=== PATIENT | female | born 1965 | race African-American/Black ===

== ENCOUNTER 2017-09-08 21:15 | Emergency (ER) | payer OTHER ==
[~2017-09-08] VITALS: Ht 154.9 cm; Wt 99.8 kg
[~2017-09-08 21:15] MED LIST: ABILIFY5 MG ORAL; ALBUTEROL SULF8.5 GM INH; AMOXICILLIN500 MG ORAL; ASPIR 8181 MG ORAL; ATENOLOL-CHLOR1 EAC2 ORAL; BENADRYL50 MG ORAL; BENAZEPRIL HCL10 MG ORAL; BENAZEPRIL HCL20 MG ORAL; BENAZEPRIL HCL40 MG ORAL; BIOTIN2500 MCG PO; CELEXA20 MG PO; CIPRO500 MG PO; HUMALOG100 UNIT/4 SUBQ; LEVAQUIN750 MG ORAL; MAPAP650 MG/20. PO; NORCO 5-325 TA1 EACH ORAL; NOVOLIN N100 UNIT/1 SUBQ; OMEPRAZOLE40 M1 ORAL; PERCOCET 5-3251 EACH ORAL; PREDNISONE20 MG ORAL; PROMETHAZINE-C118 M1 ORAL; SIMVASTATIN20 MG ORAL; THORAZINE10 MG PO; TOUJEO SOL300 UNIT/1 SQ; TYLENOL325 MG ORAL; [UNRECOGNIZED DRUG - OTHER] SUBQ; [UNRECOGNIZED DRUG - OTHER] SUBQ; [UNRECOGNIZED DRUG - REMARK]
[2017-09-08 21:25] VITALS: BP 163/110
[2017-09-08] MEDS ORDERED: HYDROmorphone 1mg/ml Carpuject IVP ONE (21:30)
[2017-09-08] MEDS ORDERED: Pantoprazole Inj IV ONE (21:30)
--- NOTE | 2017-09-08 21:30 | Emergency Room Report ---
History of Present Illness General Chief Complaint: Abdominal Pain Source: Patient Present Illness HPI This is a 52-year-old female with history of diabetes and renal insufficiency with GFR of around 16%. She's not on dialysis. She has been in DKA before. She presents with chief complaint of abdominal pain with vomiting and diarrhea. Onset today. Pain is 9/10. Vomiting now with chest pain. Vomiting is nonbloody and nonbilious. Diarrhea is watery. No sick contact. No fever or chills. Allergies: Coded Allergies: No Known Allergies (Unverified , 10/13/13) Patient History Past Medical History: see triage record, old chart reviewed, DM, HTN, renal disease Past Surgical History: other Pertinent Family History: none Social History: Reports: drug use - MJ. H/o PCP. Went to rehab., Denies: smoking Last Menstrual Period: none Now: No Immunizations: other Reviewed Nursing Documentation: PMH: Agreed, PSxH: Agreed Nursing Documentation-PMH Hx Hypertension: Yes Hx Asthma: Yes Hx COPD: Yes - bronchitis Hx Diabetes: Yes Hx Cancer: No Hx Gastrointestinal Problems: No - kidney failure Hx Neurological Problems: No - siezure, anxiety Review of Systems Eye: Denies: eye pain, blurred vision ENT: Denies: ear pain, nose congestion, throat swelling Respiratory: Denies: cough, shortness of breath Cardiovascular: Reports: chest pain, Denies: palpitations Gastrointestinal: Reports: abdominal pain, diarrhea, nausea, vomiting Musculoskeletal: Denies: back pain, joint pain Skin: Denies: rash Neurological: Denies: headache, numbness Endocrine: Denies: increased thirst, increased urine Hematologic/Lymphatic: Denies: easy bruising All Other Systems: negative except mentioned in HPI Physical Exam Vital Signs Date Time Temp Pulse Resp B/P (MAP) Pulse Ox O2 Delivery O2 Flow Rate FiO2 09/08/17 21:18 98.2 80 18 163/110 98 vitals with high blood pressure Sp02 EP Interpretation: reviewed, normal General Appearance: well appearing, no apparent distress, alert Head: normocephalic, atraumatic Eyes: bilateral eye PERRL, bilateral eye EOMI ENT: hearing grossly normal, normal pharynx Neck: full range of motion, supple, no meningismus Respiratory: chest non-tender, lungs clear, normal breath sounds Cardiovascular #1: regular rate, rhythm, no murmur Gastrointestinal: no mass, no organomegaly, no bruit, non-distended, abnormal bowel sounds - Hyperactive, tenderness - Diffuse tenderness Musculoskeletal: back normal, normal range of motion Neurologic: alert, oriented x3 Psychiatric: mood/affect normal Skin: warm/dry Medical Decision Making Diagnostic Impression: Primary Impression: Abdominal pain Qualified Codes: R10.84 - Generalized abdominal pain Additional Impressions: Pancreatitis Qualified Codes: K85.90 - Acute pancreatitis without necrosis or infection, unspecified Hyperglycemia ARF (acute renal failure) Qualified Codes: N17.9 - Acute kidney failure, unspecified Dehydration Proteinuria Qualified Codes: R80.9 - Proteinuria, unspecified ER Course This patient presents with abdominal pain with nausea vomiting and diarrhea. No evidence of obstruction or DKA. Kidney function showed acute on chronic renal failure. Patient said her baseline GFR is around 16 %. Now at 11%. Vomiting better now. She has a history of pancreatitis in the past. urinalysis is probably show contamination. No evidence of UTI. Laboratory Tests Test 09/08/17 21:41 09/08/17 22:05 Urine Color Yellow Urine Appearance Slightly cloudy Urine pH 7 (4.5-8.0) Urine Specific [place] 1.010 (1.005-1.035) Urine Protein 4+ (NEGATIVE) H Urine Glucose (UA) 2+ (NEGATIVE) H Urine Ketones 2+ (NEGATIVE) H Urine Occult Blood 3+ (NEGATIVE) H Urine Nitrite Negative (NEGATIVE) Urine Bilirubin Negative (NEGATIVE) Urine Urobilinogen Normal MG/DL (0.0-1.0) Urine Leukocyte Esterase 1+ (NEGATIVE) H Urine RBC 5-10 /HPF (0 - 2) H Urine WBC 2-4 /HPF (0 - 2) Urine Squamous Epithelial Cells Moderate /LPF (NONE/OCC) H Urine Amorphous Sediment Few /LPF (NONE) H Urine Bacteria Moderate /HPF (NONE) H Urine Opiates Screen Negative (NEGATIVE) Urine Barbiturates Screen Negative (NEGATIVE) Phencyclidine (PCP) Screen Negative (NEGATIVE) Urine Amphetamines Screen Negative (NEGATIVE) Urine Benzodiazepines Screen Negative (NEGATIVE) Urine Cocaine Screen Negative (NEGATIVE) Urine Marijuana (THC) Screen Positive (NEGATIVE) H White Blood Count Pending Red Blood Count Pending Hemoglobin Pending Hematocrit Pending Mean Corpuscular Volume Pending Mean Corpuscular Hemoglobin Pending Mean Corpuscular Hemoglobin Concent Pending Red Cell Distribution Width Pending Platelet Count Pending Mean Platelet Volume Pending Neutrophils (%) (Auto) Pending Lymphocytes (%) (Auto) Pending Monocytes (%) (Auto) Pending Eosinophils (%) (Auto) Pending Basophils (%) (Auto) Pending Sodium Level 139 MMOL/L (136-145) Potassium Level 4.0 MMOL/L (3.5-5.1) Chloride Level 101 MMOL/L (98-107) Carbon Dioxide Level 24 MMOL/L (21-32) Anion Gap 14 mmol/L (5-15) Blood Urea Nitrogen 52 mg/dL (7-18) H Creatinine 5.0 MG/DL (0.55-1.30) H Estimat Glomerular Filtration Rate 11.0 mL/min (>60) Glucose Level 222 MG/DL (74-106) H Calcium Level 9.3 MG/DL (8.5-10.1) Total Bilirubin 0.4 MG/DL (0.2-1.0) Aspartate Amino Transf (AST/SGOT) 15 U/L (15-37) Alanine Aminotransferase (ALT/SGPT) 13 U/L (12-78) Alkaline Phosphatase 186 U/L (46-116) H Total Protein 8.5 G/DL (6.4-8.2) H Albumin 3.1 G/DL (3.4-5.0) L Globulin 5.4 g/dL Albumin/Globulin Ratio 0.6 (1.0-2.7) L Lipase 1232 U/L (73-393) H Lab Results Impression labs showed elevated lipase and kidney function. Last Vital Signs Date Time Temp Pulse Resp B/P (MAP) Pulse Ox O2 Delivery O2 Flow Rate FiO2 09/08/17 21:25 98.2 18 163/110 98 09/08/17 21:18 80 Status: improved Disposition: XFER SHT-TRM HOSP Condition: Stable KANDY DEGROOT M.D. Sep 08, 2017 21:30
[2017-09-08 22:08] LABS: APPEARANCE,URINE SLIGHTLY CLOUDY; KETONES,URINE 2+ (NEGATIVE); LEUKOCYTE ESTERASE ,URINE 1+ (NEGATIVE); NITRITE,URINE NEGATIVE (NEGATIVE); PH,URINE 7 (4.5-8.0); PROTEIN,URINE 4+ (NEGATIVE); UROBILINOGEN,URINE NORMAL MG/DL (0.0-1.0)
[2017-09-08 22:19] LABS: AMORPHOUS SEDIMENT,UR FEW /LPF; BACTERIA,URINE MODERATE /HPF; SQUAMOUS EPITHELIAL CELL,UR MODERATE /LPF (NONE/OCC)
[2017-09-08 22:35] LABS: ANION GAP 14 mmol/L (5-15); CALCIUM 9.3 MG/DL (8.5-10.1); CARBON DIOXIDE 24 MMOL/L (21-32); CHLORIDE 101 MMOL/L (98-107); SODIUM 139 MMOL/L (136-145)
[2017-09-08 22:41] LABS: ALANINE AMINOTRANSFERASE 13 U/L (12-78); ALBUMIN/GLOBULIN RATIO 0.6 (1.0-2.7); ASPARTATE AMINO TRANSFERASE 15 U/L (15-37); LIPASE 1232 U/L (73-393); TOTAL PROTEIN 8.5 G/DL (6.4-8.2)
[2017-09-08 23:08] VITALS: BP 155/88
[2017-09-08 23:10] LABS: BASOPHILS % (AUTO) 0.8 % (0.0-2.0); EOSINOPHILS % (AUTO) 0.5 % (0.0-3.0); LYMPHOCYTES % (AUTO) 21.8 % (20.0-45.0); MEAN CORPUSCULAR HEMOGLOBIN 27.1 PG (27.0-31.0); MEAN CORPUSCULAR HGB CONC 29.9 G/DL (32.0-36.0); MEAN CORPUSCULAR VOLUME 91 FL (80-99); MEAN PLATELET VOLUME 8.2 FL (6.5-10.1); MONOCYTES % (AUTO) 3.5 % (1.0-10.0); NEUTROPHILS % (AUTO) 73.5 % (45.0-75.0); PLATELET COUNT 162 K/UL (150-450); RED BLOOD COUNT 3.31 M/UL (4.20-5.40); RED CELL DISTRIBUTION WIDTH 12.1 % (11.6-14.8); WHITE BLOOD COUNT 7.5 K/UL (4.8-10.8)
[2017-09-09 00:34] VITALS: BP 148/90
[2017-09-09 00:40] VITALS: BP 148/90
== END 2017-09-09 00:41 | disposition short-term general hospital (02) ==
LOC: EMR 21:25
DX: R10.9 Unspecified abdominal pain (principal); R11.2 Nausea with vomiting, unspecified; R19.7 Diarrhea, unspecified; K85.90 Acute pancreatitis without necrosis or infection, unspecified; J45.909 Unspecified asthma, uncomplicated; R73.9 Hyperglycemia, unspecified; N17.9 Acute kidney failure, unspecified; E86.0 Dehydration; R80.9 Proteinuria, unspecified; I12.9 Hypertensive chronic kidney disease with stage 1 through stage 4 chronic kidney disease, or unspecified chronic kidney disease; N18.9 Chronic kidney disease, unspecified
CPT/HCPCS: 36415; 80053; 80307; 81003; 83690; 85025; 87086; 96374; 96375; 99285; C9113; J1170; J2405

== ENCOUNTER 2017-10-05 12:19 | Emergency (ER) | payer OTHER ==
[~2017-10-05] VITALS: Ht 157.5 cm; Wt 104.3 kg
[2017-10-05 12:30] VITALS: BP 155/99
[2017-10-05] MEDS ORDERED: Pantoprazole Inj IVP ONE (13:00)
[2017-10-05] MEDS ORDERED: NS 1000ml 3,100 ML IVLG ONE (13:00)
[2017-10-05 13:02] LABS: BASOPHILS % (AUTO) 0.9 % (0.0-2.0); EOSINOPHILS % (AUTO) 1.1 % (0.0-3.0); LYMPHOCYTES % (AUTO) 8.6 % (20.0-45.0); MEAN CORPUSCULAR HEMOGLOBIN 27.9 PG (27.0-31.0); MEAN CORPUSCULAR HGB CONC 30.7 G/DL (32.0-36.0); MEAN CORPUSCULAR VOLUME 91 FL (80-99); MEAN PLATELET VOLUME 9.1 FL (6.5-10.1); NEUTROPHILS % (AUTO) 84.3 % (45.0-75.0); PLATELET COUNT 166 K/UL (150-450); RED BLOOD COUNT 3.94 M/UL (4.20-5.40); RED CELL DISTRIBUTION WIDTH 12.9 % (11.6-14.8); WHITE BLOOD COUNT 8.8 K/UL (4.8-10.8)
[2017-10-05 14:00] VITALS: BP 143/77
[2017-10-05 14:04] LABS: ANION GAP 10 mmol/L (5-15); CARBON DIOXIDE 21 MMOL/L (21-32); CHLORIDE 107 MMOL/L (98-107); CREATININE 4.6 MG/DL (0.55-1.30); POTASSIUM 5.3 MMOL/L (3.5-5.1); SODIUM 138 MMOL/L (136-145)
[2017-10-05 14:28] LABS: ALANINE AMINOTRANSFERASE 24 U/L (12-78); ALBUMIN/GLOBULIN RATIO 0.6 (1.0-2.7); ASPARTATE AMINO TRANSFERASE 19 U/L (15-37); CKMB 1.4 NG/ML (0.0-3.6); MAGNESIUM 1.2 MG/DL (1.8-2.4); TOTAL PROTEIN 8.1 G/DL (6.4-8.2)
--- NOTE | 2017-10-05 14:37 | Emergency Room Report ---
History of Present Illness General Chief Complaint: Chest Pain Source: Patient Present Illness HPI This patient presents with nausea, vomiting, diarrhea and chest pain. The patient has a history of end-stage renal disease and is dialysis dependent. She states she woke up around 6 AM this morning with nausea and vomiting. She states that thereafter she developed chest pain and diarrhea. She did not go to dialysis today as scheduled. She states she continued to have multiple episodes of vomiting and diarrhea and she was unable to get to the clinic. She denies fever or chills. She denies recent illness. She has no other complaints. Allergies: Coded Allergies: No Known Allergies (Unverified , 10/13/13) Patient History Past Medical History: see triage record, DM, HTN, AL, CAD, CHF, COPD, GERD, psych hx, renal disease, dialysis Social History: Denies: smoking, alcohol use, drug use Reviewed Nursing Documentation: PMH: Agreed, PSxH: Agreed Nursing Documentation-PMH Hx Hypertension: Yes Hx Asthma: Yes Hx COPD: Yes - bronchitis Hx Diabetes: Yes Hx Cancer: No Hx Gastrointestinal Problems: No - kidney failure Hx Dialysis: Yes - TUES, THURS, SAT Hx Neurological Problems: No - siezure, anxiety Review of Systems All Other Systems: negative except mentioned in HPI Physical Exam Vital Signs Date Time Temp Pulse Resp B/P (MAP) Pulse Ox O2 Delivery O2 Flow Rate FiO2 10/05/17 12:27 98.2 123 20 135/83 99 Room Air Sp02 EP Interpretation: reviewed, normal General Appearance: no apparent distress, alert, GCS 15, non-toxic Head: normocephalic, atraumatic Eyes: bilateral eye normal inspection, bilateral eye PERRL ENT: hearing grossly normal, normal pharynx, no angioedema, normal voice Neck: full range of motion, supple/symm/no masses Respiratory: chest non-tender, lungs clear, normal breath sounds, no respiratory distress, no retraction, no accessory muscle use, speaking full sentences Cardiovascular #1: no edema, tachycardia Gastrointestinal: normal bowel sounds, non tender, soft, non-distended, no guarding, no rebound Rectal: deferred Musculoskeletal: back normal, normal range of motion, non-tender Neurologic: alert, oriented x3, responsive, motor strength/tone normal, sensory intact, speech normal Psychiatric: judgement/insight normal, memory normal, mood/affect normal, no suicidal/homicidal ideation Skin: normal color, no rash, warm/dry, well hydrated Medical Decision Making Diagnostic Impression: Primary Impression: Chest pain Additional Impressions: Nausea, vomiting, and diarrhea Tachycardia Hyperkalemia ER Course This patient likely has a viral gastroenteritis. She has recurrent vomiting and diarrhea. She also is chest pain. She persistently tachycardic in the 120s. She also has hyperkalemia related to her renal failure. She missed dialysis today. I felt this patient should be admitted for ongoing vomiting and for all of her other chronic medical conditions that but this patient at risk for rapid decompensation. The patient states she is unsure she failed to get into dialysis tomorrow before the weekend and Monday is the [place] holiday. Therefore, I felt that this patient should be admitted overnight. Laboratory Tests Test 10/05/17 12:40 10/05/17 13:10 10/05/17 13:30 White Blood Count 8.8 K/UL (4.8-10.8) Red Blood Count 3.94 M/UL (4.20-5.40) L Hemoglobin 11.0 G/DL (12.0-16.0) L Hematocrit 35.8 % (37.0-47.0) L Mean Corpuscular Volume 91 FL (80-99) Mean Corpuscular Hemoglobin 27.9 PG (27.0-31.0) Mean Corpuscular Hemoglobin Concent 30.7 G/DL (32.0-36.0) L Red Cell Distribution Width 12.9 % (11.6-14.8) Platelet Count 166 K/UL (150-450) Mean Platelet Volume 9.1 FL (6.5-10.1) Neutrophils (%) (Auto) 84.3 % (45.0-75.0) H Lymphocytes (%) (Auto) 8.6 % (20.0-45.0) L Monocytes (%) (Auto) 5.0 % (1.0-10.0) Eosinophils (%) (Auto) 1.1 % (0.0-3.0) Basophils (%) (Auto) 0.9 % (0.0-2.0) Lactic Acid Level 0.90 mmol/L (0.66-2.22) Sodium Level 138 MMOL/L (136-145) Potassium Level 5.3 MMOL/L (3.5-5.1) H Chloride Level 107 MMOL/L (98-107) Carbon Dioxide Level 21 MMOL/L (21-32) Anion Gap 10 mmol/L (5-15) Blood Urea Nitrogen 39 mg/dL (7-18) H Creatinine 4.6 MG/DL (0.55-1.30) H Estimate Glomerular Filtration Rate 12.0 mL/min (>60) Glucose Level 106 MG/DL (74-106) Calcium Level 9.0 MG/DL (8.5-10.1) Magnesium Level 1.2 MG/DL (1.8-2.4) L Total Bilirubin 0.3 MG/DL (0.2-1.0) Aspartate Amino Transferase (AST) 19 U/L (15-37) Alanine Aminotransferase (ALT) 24 U/L (12-78) Alkaline Phosphatase 170 U/L (46-116) H Total Creatine Kinase 92 U/L (26-308) Creatine Kinase MB 1.4 NG/ML (0.0-3.6) Creatine Kinase MB Relative Index 1.5 Troponin I 0.000 ng/mL (0.000-0.056) Total Protein 8.1 G/DL (6.4-8.2) Albumin 2.9 G/DL (3.4-5.0) L Globulin 5.2 g/dL Albumin/Globulin Ratio 0.6 (1.0-2.7) L Microbiology Date/Time Source Procedure Growth Status 10/05/17 13:45 Nasal Nares Influenza Types A,B Antigen (JUANA) - Final Complete EKG Diagnostic Results Rate: tachycardiac Rhythm: other - S.tachycardia ST Segments: no acute changes Rhythm Strip Diag. Results EP Interpretation: yes Rate: 110's Rhythm: no PVC's, no ectopy, other - S.tachycardia Chest X-Ray Diagnostic Results Chest X-Ray Diagnostic Results : Chest X-Ray Ordered: Yes # of Views/Limited/Complete: 1 View Indication: Chest Pain EP Interpretation: Yes Interpretation: no consolidation, no effusion, no pneumothorax, no acute cardiopulmonary disease Impression: No acute disease Electronically Signed by: El Last Vital Signs Date Time Temp Pulse Resp B/P (MAP) Pulse Ox O2 Delivery O2 Flow Rate FiO2 10/05/17 12:30 98.0 118 24 155/99 100 Room Air Disposition: ADMITTED INPATIENT Condition: Serious Referrals: [facility]ERR[facility] (PCP) SHERRI GUERRERO D.O. Oct 05, 2017 14:37
[2017-10-05] MEDS ORDERED: Sodium Chloride 500ML 500 ML IV ONE (14:45)
[2017-10-05 14:51] LABS: APPEARANCE,URINE CLEAR; KETONES,URINE NEGATIVE (NEGATIVE); LEUKOCYTE ESTERASE ,URINE 1+ (NEGATIVE); NITRITE,URINE NEGATIVE (NEGATIVE); PH,URINE 8 (4.5-8.0); PROTEIN,URINE 4+ (NEGATIVE); UROBILINOGEN,URINE NORMAL MG/DL (0.0-1.0)
[2017-10-05 14:59] LABS: BACTERIA,URINE OCCASIONAL /HPF; SQUAMOUS EPITHELIAL CELL,UR FEW /LPF (NONE/OCC); WBC,URINE 0-2 /HPF (0 - 2)
--- NOTE | 2017-10-05 15:25 | Diagnostic Imaging Report ---
Indication: Chest pain Technique: One view of the chest Comparison: 08/18/2016 Findings: Lungs and pleural spaces are clear. Heart size is normal. Interim placement of a right jugular tunneled dialysis catheter Impression: No acute process
[2017-10-05 16:30] VITALS: BP 144/98
[2017-10-05] MEDS ORDERED: Morphine Sulfate 4mg/ml Inj ONE (16:57)
[2017-10-05] MEDS ORDERED: Morphine Sulfate 4mg/ml Inj IVP ONE (17:00)
[2017-10-05 19:00] VITALS: BP 153/71
--- NOTE | 2017-10-08 15:20 | Cardiology Report ---
APPROVED REPORT EKG Measurement Heart [id number] Sinus tachycardia Otherwise normal ECG
== END 2017-10-05 19:02 | disposition other institution (70) ==
LOC: EMR 13:05
DX: R07.89 Other chest pain (principal); R11.2 Nausea with vomiting, unspecified; R11.10 Vomiting, unspecified; R00.0 Tachycardia, unspecified; E87.5 Hyperkalemia; I12.0 Hypertensive chronic kidney disease with stage 5 chronic kidney disease or end stage renal disease; N18.6 End stage renal disease; Z99.2 Dependence on renal dialysis; J44.9 Chronic obstructive pulmonary disease, unspecified
CPT/HCPCS: 36415; 71010; 80053; 81003; 82550; 82553; 83605; 83735; 84484; 85025; 86710; 93005; 99285; C9113; J2270; J2405; J7040

== ENCOUNTER 2018-04-09 08:16 | Emergency (ER) | payer OTHER ==
[~2018-04-09] VITALS: Ht 154.9 cm; Wt 102.1 kg
--- NOTE | 2018-04-09 08:59 | Emergency Room Report ---
History of Present Illness General Chief Complaint: Lower Extremity Injury Source: Patient, Medical Record Present Illness HPI Patient injured her right little toe last night. She caught it on a counter. No bleeding. The pain is severe this morning. She rates it at 10/10, throbbing and aching, radiating to foot. She is concerned as she is a diabetic and also wants to know if fractured. No pain medicine taken. No numbness. No fevers, calf swelling or pain. The patient is also diabetic and glucose was 200. She did not take her insulin this morning. Allergies: Coded Allergies: No Known Allergies (Unverified , 10/13/13) Patient History Past Medical History: see triage record Social History Narrative brought by daughter Last Menstrual Period: menopause Reviewed Nursing Documentation: PMH: Agreed; PSxH: Agreed Nursing Documentation-PMH Past Medical History: No History, Except For Hx Hypertension: Yes Hx Asthma: Yes Hx COPD: Yes - bronchitis Hx Diabetes: Yes Hx Cancer: No Hx Gastrointestinal Problems: No - kidney failure Hx Dialysis: Yes - TUES, THURS, SAT Hx Neurological Problems: No - siezure, anxiety Review of Systems Constitutional: Reports: see HPI Musculoskeletal: Reports: see HPI Skin: Denies: change in color Neurological: Reports: see HPI Endocrine: Reports: see HPI Hematologic/Lymphatic: Reports: see HPI Physical Exam Vital Signs Date Time Temp Pulse Resp B/P (MAP) Pulse Ox O2 Delivery O2 Flow Rate FiO2 04/09/18 08:19 98.4 83 18 150/80 95 Room Air 98.4 Medical Decision Making Diagnostic Impression: Primary Impression: Right little toe fracture Additional Impression: Diabetes Qualified Codes: E11.8 - Type 2 diabetes mellitus with unspecified complications; 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 Differential includes fracture, contusion, sprain. The patient be given analgesics and x-rays are indicated. In addition an Accu-Chek will be checked. Also she will be given analgesics. Xray with fracture. Rigoberto tape applied by tech. Position, tension and neurovasc checked by me and excellent with improvement. Accucheck in 200s. Insulin ordered. Advised to follow up to have re-evaluation. Patient stable for outpatient observation and treatment. Other X-Ray Diagnostic Results Other X-Ray Diagnostic Results : X-Ray ordered: R foot # of Views/Limited Vs Complete: 3 View Indication: Pain EP Interpretation: Yes Interpretation: no dislocation, no soft tissue swelling, other - fx and osteopenia Impression: Other Electronically Signed by: Darrius Navarro MD Last Vital Signs Date Time Temp Pulse Resp B/P (MAP) Pulse Ox O2 Delivery O2 Flow Rate FiO2 04/09/18 11:00 98.4 78 18 150/80 98 Room Air 98.4 Status: improved Disposition: HOME, SELF-CARE Condition: Improved Scripts Ibuprofen* (MOTRIN*) 400 Mg Tablet 400 MG ORAL Q8H, #12 TAB 0 Refills Prov: Darrius Navarro M.D. 04/09/18 Tramadol Hcl* (ULTRAM*) 50 Mg Tablet 50 MG ORAL Q6H PRN for For Pain, #14 TAB 0 Refills Prov: Darrius Navarro M.D. 04/09/18 Referrals: [facility]ERR[facility] (PCP) Darrius Navarro M.D. Apr 09, 2018 08:59
[2018-04-09] MEDS ORDERED: oxyCODONE HCL/Acetaminophen 5/325mg ORAL ONE (09:00)
[2018-04-09] MEDS ORDERED: NovoLOG Insulin Flexpen SUBQ STA (09:07)
[2018-04-09] MEDS ORDERED: Insulin Human Regular 100units/ml 3ml SUBQ ONE (09:30)
[2018-04-09] MEDS ORDERED: IBUPROFEN400 MG ORAL (10:22)
[2018-04-09] MEDS ORDERED: TRAMADOL HCL50 MG ORAL (10:22)
--- NOTE | 2018-04-09 10:45 | Diagnostic Imaging Report ---
Indication: Pain in fifth digit of right foot, status post trauma Technique: 3 views right foot Comparison: none Findings: No acute fractures. No dislocations. The joint spaces are preserved. There is mild hammertoe deformity of the second through fifth digits Impression: No acute bony trauma
[2018-04-09 11:00] VITALS: BP 150/80
== END 2018-04-09 11:03 | disposition home or self-care (01) ==
LOC: EMR 08:56
DX: S92.501A Displaced unspecified fracture of right lesser toe(s), initial encounter for closed fracture (principal); W22.8XXA Striking against or struck by other objects, initial encounter; Y92.009 Unspecified place in unspecified non-institutional (private) residence as the place of occurrence of the external cause; J44.9 Chronic obstructive pulmonary disease, unspecified; E11.9 Type 2 diabetes mellitus without complications; I12.0 Hypertensive chronic kidney disease with stage 5 chronic kidney disease or end stage renal disease; N18.6 End stage renal disease; Z99.2 Dependence on renal dialysis
CPT/HCPCS: 73630; 82962; 96372; 99283; J1815

== ENCOUNTER 2018-10-17 03:46 | Emergency (ER) | payer OTHER ==
[~2018-10-17] VITALS: Ht 157.5 cm; Wt 108.0 kg
[~2018-10-17 03:46] MED LIST changes: +IBUPROFEN400 MG ORAL; +TRAMADOL HCL50 MG ORAL
--- NOTE | 2018-10-17 03:56 | Emergency Room Report ---
History of Present Illness General Source: Patient Present Illness HPI This is a 53-year-old female with multiple medical problems including diabetes, hypertension, asthma, renal failure on hemodialysis. Her usual dialysis days are Monday, , Monday. She had dialysis done on Monday because of the holiday. She said that they only took out 2 kg because she was cramping. Her dry weight is usually around 102 kilogram. He was 105 kg on Monday. She presents with shortness of breath. Onset was acute. Awoke her up from sleep. Per EMS she was typed and hypoxic. She was wheezing so they put her on albuterol. She felt somewhat better now. No nausea no vomiting. No fever or chills. Worse with lying flat. Better with sitting up. Better with oxygen. Allergies: Coded Allergies: No Known Allergies (Unverified , 10/13/13) Patient History Past Medical History: see triage record, old chart reviewed, DM, HTN, CHF, asthma, renal disease, dialysis Past Surgical History: other Pertinent Family History: none Social History: Denies: smoking Now: No Immunizations: other Reviewed Nursing Documentation: PMH: Agreed; PSxH: Agreed Nursing Documentation-PMH Hx Hypertension: Yes Hx Asthma: Yes Hx COPD: Yes - bronchitis Hx Diabetes: Yes Hx Cancer: No Hx Gastrointestinal Problems: No - kidney failure Hx Dialysis: Yes - , , MON Hx Neurological Problems: No - siezure, anxiety Review of Systems Eye: Denies: eye pain, blurred vision ENT: Denies: ear pain, nose congestion, throat swelling Respiratory: Reports: shortness of breath; Denies: cough Cardiovascular: Denies: chest pain, palpitations Gastrointestinal: Denies: abdominal pain, diarrhea, nausea, vomiting Musculoskeletal: Denies: back pain, joint pain Skin: Denies: rash Neurological: Denies: headache, numbness Endocrine: Denies: increased thirst, increased urine Hematologic/Lymphatic: Denies: easy bruising All Other Systems: negative except mentioned in HPI Physical Exam vitals with tachycardia and hypoxia Sp02 EP Interpretation: reviewed, abnormal General Appearance: well appearing, alert, mild distress, obese Head: normocephalic, atraumatic Eyes: bilateral eye PERRL, bilateral eye EOMI ENT: hearing grossly normal, normal pharynx Neck: full range of motion, supple, no meningismus Respiratory: chest non-tender, respiratory distress, decreased breath sounds, accessory muscle use, rales, wheezing - Faint wheezing Cardiovascular #1: regular rate, rhythm, no murmur, other - Left chest dialysis graft Gastrointestinal: normal bowel sounds, non tender, no mass, no organomegaly, no bruit, non-distended Musculoskeletal: back normal, gait/station normal, normal range of motion, other - Left AV graft. Tender to palpation. This graft was just placed recently. Neurologic: alert, oriented x3 Psychiatric: mood/affect normal Skin: warm/dry Procedures Critical Care Time Critical Care Time Critical care is mandated in this patient who presented with respiratory distress secondary to fluid overloaded. Patient require my urgent intervention to attenuate the risks of respiratory collapse which may lead to cardiovascular collapse and . Critical care time is 35 minutes excluding any reportable procedure. Critical care time included evaluation, multiple reevaluation, looking at old charts, interpreting laboratory and diagnostic data, discussing case with patient and family and consultants, and charting. Medical Decision Making Diagnostic Impression: Primary Impression: Acute exacerbation of CHF (congestive heart failure) Qualified Codes: I50.9 - Heart failure, unspecified Additional Impressions: Asthma exacerbation Qualified Codes: J45.21 - Mild intermittent asthma with (acute) exacerbation Hypertension Qualified Codes: I10 - Essential (primary) hypertension Type 1 diabetes mellitus with hyperglycemia Morbid obesity with BMI of 40.0-44.9, adult ER Course Patient with rest or distress secondary to fluid overloaded. She diuresed after Lasix. [place] better. Also better after that lasted treatment from EMS and oxygen here. No evidence of ACS, PE, dissection or pneumonia to name a few. At this point in time, she stable for transfer. I discussed the case with Dr. Mclaughlin who accepted pt for transfer to [facility]. Lab Results Impression last with elevated glucose and BNP EKG Diagnostic Results Rate: normal, tachycardiac Rhythm: NSR ST Segments: other - NSST changes Rhythm Strip Diag. Results Rhythm Strip Time: 04:26 EP Interpretation: yes Rate: 110 Rhythm: NSR, no PVC's, no ectopy Chest X-Ray Diagnostic Results Chest X-Ray Diagnostic Results : Chest X-Ray Ordered: Yes # of Views/Limited/Complete: 1 View Indication: Shortness of Breath EP Interpretation: Yes Interpretation: no consolidation, no effusion, no pneumothorax, other - vasc congestion Impression: Other - chf Electronically Signed by: Carlos Tang MD Status: improved Disposition: XFER SHT-TRM HOSP Condition: Stable Carols Tang MD Oct 17, 2018 03:56
[2018-10-17 04:00] VITALS: BP 140/71
--- NOTE | 2018-10-17 04:00 | NUR ---
ED Nurse Note: pt wasa brought in by ra Lorenzana from home due to difficulty breathing x 20 mins ago. lafd stated pt was asleep and started to have shortness of breath. 2 albuterol nebulizer was given in the scene. pt O2 sat is 99 per traig. no additional signs of resp depression other than albuterol treatment per EMS. no accessory muscles noted to help pt breath. (no labored breathing) lungs sound clear bilaterally. pt is alert and oriented times 4 at the time of traig, pt is able to answer questions during assesment. pt admits to a graft for dialysis on left upper chest. pt admitts to a immature fistual on L arm.
[2018-10-17 04:06] LABS: BASOPHILS % (AUTO) 1.3 % (0.0-2.0); EOSINOPHILS % (AUTO) 1.7 % (0.0-3.0); HEMATOCRIT 32.6 % (37.0-47.0); HEMOGLOBIN 10.2 G/DL (12.0-16.0); LYMPHOCYTES % (AUTO) 25.3 % (20.0-45.0); MEAN CORPUSCULAR VOLUME 95 FL (80-99); MONOCYTES % (AUTO) 4.5 % (1.0-10.0); NEUTROPHILS % (AUTO) 67.2 % (45.0-75.0); PLATELET COUNT 291 K/UL (150-450); RED BLOOD COUNT 3.43 M/UL (4.20-5.40); RED CELL DISTRIBUTION WIDTH 14.4 % (11.6-14.8); WHITE BLOOD COUNT 11.7 K/UL (4.8-10.8)
[2018-10-17 04:26] LABS: APPEARANCE,URINE CLEAR; BILIRUBIN, URINE NEGATIVE (NEGATIVE); COLOR,URINE PALE YELLOW; GLUCOSE, URINE (UA) 4+ (NEGATIVE); KETONES,URINE NEGATIVE (NEGATIVE); LEUKOCYTE ESTERASE ,URINE 1+ (NEGATIVE); NITRITE,URINE NEGATIVE (NEGATIVE); PH,URINE 8 (4.5-8.0); PROTEIN,URINE 3+ (NEGATIVE); UROBILINOGEN,URINE NORMAL MG/DL (0.0-1.0)
[2018-10-17] MEDS ORDERED: VENTOLIN HFA18 GM INH (04:32)
[2018-10-17] MEDS ORDERED: OMEPRAZOLE40 M1 ORAL (04:32)
[2018-10-17] MEDS ORDERED: RISPERDAL1 MG PO (04:32)
[2018-10-17] MEDS ORDERED: GABAPENTIN400 MG ORAL (04:32)
[2018-10-17] MEDS ORDERED: HUMULIN R100 UNIT/1 SUBQ (04:32)
[2018-10-17] MEDS ORDERED: BANOPHEN25 MG PO (04:32)
[2018-10-17 04:38] LABS: ALANINE AMINOTRANSFERASE 18 U/L (12-78); ALBUMIN 3.3 G/DL (3.4-5.0); ALBUMIN/GLOBULIN RATIO 0.7 (1.0-2.7); ALKALINE PHOSPHATASE 264 U/L (46-116); ANION GAP 10 mmol/L (5-15); ASPARTATE AMINO TRANSFERASE 16 U/L (15-37); BILIRUBIN,TOTAL 0.4 MG/DL (0.2-1.0); BLOOD UREA NITROGEN 48 mg/dL (7-18); CALCIUM 8.2 MG/DL (8.5-10.1); CARBON DIOXIDE 29 MMOL/L (21-32); CHLORIDE 100 MMOL/L (98-107); CKMB 1.4 NG/ML (0.0-3.6); CREATINE KINASE 117 U/L (26-308); CREATININE 5.1 MG/DL (0.55-1.30); POTASSIUM 3.6 MMOL/L (3.5-5.1); SODIUM 139 MMOL/L (136-145)
[2018-10-17] MEDS ORDERED: Insulin Human Regular 100units/ml 3ml IV ONE (04:45)
--- NOTE | 2018-10-17 05:15 | Diagnostic Imaging Report ---
EXAM: XR Chest, 1 View CLINICAL HISTORY: SOB TECHNIQUE: Frontal view of the chest. COMPARISON: Chest radiograph dated 10/05/17. FINDINGS: Lungs: There is development of increased interstitial markings bilaterally. More confluent opacities are seen at the lung bases. Pleural space: Unremarkable. No pneumothorax. Heart: Cardiac size is prominent. Mediastinum: Unremarkable. Bones/joints: Unremarkable. Vasculature: A vascular stent has been placed at the right upper thorax. Tubes, lines and devices: There is a central venous catheter with the tip projecting at the right atrium. IMPRESSION: Interval development of increased prominence of interstitial markings and hazy opacities at the lung bases. Differential diagnosis would favor pulmonary vascular congestion. Bibasilar pneumonia is not excluded.
[2018-10-17 06:00] VITALS: BP 152/69
--- NOTE | 2018-10-17 06:33 | NUR ---
ED Nurse Note: Blood sugar recheck: 230. aware.
[2018-10-17 07:01] VITALS: BP 130/74
--- NOTE | 2018-10-17 07:46 | NUR ---
ED Nurse Note: daughter, call for update
[2018-10-17 08:30] VITALS: BP 130/74
--- NOTE | 2018-10-17 08:31 | NUR ---
ED Nurse Note: ambulance picked the patient up to bring her to [facility], report given to nursing drilling supervisor Joya. patient left her upper denture, 1 black cell phone, and her clothings. ID band removed. a/o x4, ambulatory, patient used bedside commode safely just before she left.
--- NOTE | 2018-10-17 15:45 | Cardiology Report ---
APPROVED REPORT EKG Measurement Heart [id number] [place] [id number] Sinus tachycardia Otherwise normal ECG
== END 2018-10-17 08:30 | disposition short-term general hospital (02) ==
LOC: EDBD 03:46 → EMR 04:00 → EDBEDREQ 07:58 → EMR 08:30
DX: I13.2 Hypertensive heart and chronic kidney disease with heart failure and with stage 5 chronic kidney disease, or end stage renal disease (principal); I50.9 Heart failure, unspecified; N18.6 End stage renal disease; E11.22 Type 2 diabetes mellitus with diabetic chronic kidney disease; Z99.2 Dependence on renal dialysis; J45.901 Unspecified asthma with (acute) exacerbation; E66.9 Obesity, unspecified; Z68.41 Body mass index [BMI] 40.0-44.9, adult
CPT/HCPCS: 36415; 71045; 80053; 80307; 81003; 82550; 82553; 83880; 84484; 85025; 85610; 85730; 93005; 96374; 96375; 99291; J1815; J1940

== ENCOUNTER 2019-09-17 02:33 | Inpatient (IN) | payer OTHER ==
[2019-09-17] VITALS (7 sets, daily range): BP systolic 109–145; BP diastolic 50–100
[~2019-09-17] VITALS: Ht 157.5 cm; Wt 114.8 kg
[~2019-09-17 02:33] MED LIST changes: +BANOPHEN25 MG PO; +GABAPENTIN400 MG ORAL; +HUMULIN R100 UNIT/1 SUBQ; +RISPERDAL1 MG PO; +VENTOLIN HFA18 GM INH
--- NOTE | 2019-09-17 02:43 | Emergency Room Report ---
History of Present Illness General Chief Complaint: Dyspnea/Respdistress Source: Patient, Medical Record, EMS Present Illness HPI This is a 54-year-old female with a history of renal failure on hemodialysis. Hemodialysis days are Monday, , Monday. Patient presents with chief complaint of shortness of breath. Onset was about an hour and a half prior to arrival. Was acutely. She called 911. This occurred to her frequently. Per EMS, she was hypoxic and blood pressure was elevated. Systolic was over 200. She had wheezing and they gave her nitroglycerin, albuterol and placed on a CPAP mask. They brought her here. Patient felt better now. Worse with exertion. Worse with lying flat. Better with breathing treatment. Similar symptoms in the past. Denies any chest pain. Denies any diaphoresis. Did get her dialysis on Monday. Allergies: Coded Allergies: No Known Allergies (Unverified , 10/13/13) Patient History Past Medical History: see triage record, old chart reviewed, HTN, CHF, renal disease, dialysis Past Surgical History: other Pertinent Family History: none Social History: Denies: smoking Now: No Immunizations: other Reviewed Nursing Documentation: PMH: Agreed; PSxH: Agreed Nursing Documentation-PMH Hx Hypertension: Yes Hx Asthma: Yes Hx COPD: Yes - bronchitis Hx Diabetes: Yes Hx Cancer: No Hx Gastrointestinal Problems: No - kidney failure Hx Dialysis: Yes - M,W,F Hx Neurological Problems: No - SEIZURE, ANXIETY Review of Systems Eye: Denies: eye pain, blurred vision ENT: Denies: ear pain, nose congestion, throat swelling Respiratory: Reports: shortness of breath, wheezing, TAMEZ; Denies: cough Cardiovascular: Denies: chest pain, palpitations Gastrointestinal: Denies: abdominal pain, diarrhea, nausea, vomiting Musculoskeletal: Denies: back pain, joint pain Skin: Denies: rash Neurological: Denies: headache, numbness Endocrine: Denies: increased thirst, increased urine Hematologic/Lymphatic: Denies: easy bruising All Other Systems: negative except mentioned in HPI Physical Exam Vital Signs Date Time Temp Pulse Resp B/P (MAP) Pulse Ox O2 Delivery O2 Flow Rate FiO2 09/17/19 02:31 98.8 91 28 141/106 (118) 94 Bi-pap 15.0 Vitals with high blood pressure Sp02 EP Interpretation: reviewed, abnormal General Appearance: well appearing, alert, moderate distress, obese Head: normocephalic, atraumatic Eyes: bilateral eye PERRL, bilateral eye EOMI ENT: hearing grossly normal, normal pharynx Neck: full range of motion, supple, no meningismus Respiratory: chest non-tender, respiratory distress, decreased breath sounds, accessory muscle use, rales Cardiovascular #1: regular rate, rhythm, no murmur Gastrointestinal: normal bowel sounds, non tender, no mass, no organomegaly, no bruit, non-distended Musculoskeletal: back normal, normal range of motion, gait/station normal Psychiatric: mood/affect normal Procedures Critical Care Time Critical Care Time Critical care is mandated in this patient who presented with acute respiratory distress requiring BiPAP. Patient require my urgent intervention to attenuate the risks of respiratory collapse which may lead to cardiovascular collapse and . Critical care time is 35 minutes excluding any reportable procedure. Critical care time included evaluation, multiple reevaluation, looking at old charts, interpreting laboratory and diagnostic data, discussing case with patient and family and consultants, and charting. Medical Decision Making Diagnostic Impression: Primary Impression: Respiratory failure with hypoxia Qualified Codes: J96.01 - Acute respiratory failure with hypoxia Additional Impressions: Acute exacerbation of CHF (congestive heart failure) Qualified Codes: I50.9 - Heart failure, unspecified Hypertensive CHF Qualified Codes: I11.0 - Hypertensive heart disease with heart failure Morbid obesity with BMI of 40.0-44.9, adult Hyperglycemia ER Course Patient presents with acute respiratory distress. This probably secondary to flash pulmonary edema. She was placed on BiPAP and gave breathing treatment and Lasix. She diuresed well. Able to be weaned off of BiPAP. No evidence of hyperkalemia. Patient will probably need dialysis. Will admit for rule out and further work-up. I discussed the case with Dr. Fish who will admit. EKG Diagnostic Results Rate: normal Rhythm: NSR ST Segments: other - NSST changes Rhythm Strip Diag. Results EP Interpretation: yes Rate: 88 Rhythm: NSR, no PVC's, no ectopy Chest X-Ray Diagnostic Results Chest X-Ray Diagnostic Results : Chest X-Ray Ordered: Yes # of Views/Limited/Complete: 1 View Indication: Shortness of Breath EP Interpretation: Yes Interpretation: no consolidation, no effusion, no pneumothorax, other - CM with vascular congestion Impression: Other - CM with chf Electronically Signed by: Carlos Tang MD Last Vital Signs Date Time Temp Pulse Resp B/P (MAP) Pulse Ox O2 Delivery O2 Flow Rate FiO2 09/17/19 02:31 98.8 91 28 141/106 (118) 94 Bi-pap 15.0 Status: improved Disposition: ADMITTED INPATIENT Condition: Serious Carlos Tang MD Sep 17, 2019 02:43
[2019-09-17 03:00] LABS: BASOPHILS % (AUTO) 0.8 % (0.0-2.0); EOSINOPHILS % (AUTO) 1.9 % (0.0-3.0); HEMATOCRIT 34.7 % (37.0-47.0); HEMOGLOBIN 10.8 G/DL (12.0-16.0); LYMPHOCYTES % (AUTO) 25.8 % (20.0-45.0); MEAN CORPUSCULAR VOLUME 92 FL (80-99); MONOCYTES % (AUTO) 4.7 % (1.0-10.0); NEUTROPHILS % (AUTO) 66.9 % (45.0-75.0); PLATELET COUNT 248 K/UL (150-450); RED BLOOD COUNT 3.78 M/UL (4.20-5.40); RED CELL DISTRIBUTION WIDTH 14.1 % (11.6-14.8); WHITE BLOOD COUNT 11.5 K/UL (4.8-10.8)
[2019-09-17 03:13] LABS: ANION GAP 12 mmol/L (5-15); BLOOD UREA NITROGEN 58 mg/dL (7-18); CALCIUM 8.5 MG/DL (8.5-10.1); CARBON DIOXIDE 25 MMOL/L (21-32); CHLORIDE 101 MMOL/L (98-107); CREATININE 6.1 MG/DL (0.55-1.30); POTASSIUM 4.7 MMOL/L (3.5-5.1); SODIUM 138 MMOL/L (136-145)
[2019-09-17 03:25] LABS: ALANINE AMINOTRANSFERASE 21 U/L (12-78); ALBUMIN 3.3 G/DL (3.4-5.0); ALBUMIN/GLOBULIN RATIO 0.7 (1.0-2.7); ALKALINE PHOSPHATASE 366 U/L (46-116); ASPARTATE AMINO TRANSFERASE 18 U/L (15-37); BILIRUBIN,TOTAL 0.3 MG/DL (0.2-1.0)
[2019-09-17 03:27] LABS: APPEARANCE,URINE CLEAR; BILIRUBIN, URINE NEGATIVE (NEGATIVE); COLOR,URINE PALE YELLOW; GLUCOSE, URINE (UA) 4+ (NEGATIVE); KETONES,URINE NEGATIVE (NEGATIVE); LEUKOCYTE ESTERASE ,URINE 1+ (NEGATIVE); NITRITE,URINE NEGATIVE (NEGATIVE); PH,URINE 8 (4.5-8.0); PROTEIN,URINE 3+ (NEGATIVE); UROBILINOGEN,URINE NORMAL MG/DL (0.0-1.0)
[2019-09-17] MEDS ORDERED: ASPIR 8181 MG ORAL (04:25)
[2019-09-17] MEDS ORDERED: ATENOLOL25 MG ORAL (04:25)
[2019-09-17] MEDS ORDERED: Insulin Human Regular 100units/ml 3ml IV ONE (05:15)
--- NOTE | 2019-09-17 09:42 | Diagnostic Imaging Report ---
Indication: Shortness of breath Technique: One view of the chest Comparison: 10/17/2018 Findings: Body habitus limits evaluation. There is pulmonary venous congestion which is considerably less severe than that demonstrated previously. No focal wall airspace consolidation. Pleural spaces are clear. Venous stent is seen in the right subclavian and innominate vein. The heart is upper limits normal in size. Impression: Mild pulmonary venous congestion.
[2019-09-17] MEDS: NovoLOG Insulin Flexpen SUBQ SCH ×3 (11:50→21:08)
--- NOTE | 2019-09-17 13:02 | Cardiology Report ---
APPROVED REPORT EKG Measurement Heart [id number] VT [id number] Sinus rhythm with fusion complexes Possible Left atrial enlargement Left ventricular hypertrophy Abnormal ECG
--- NOTE | 2019-09-17 15:00 | History and Physical Report ---
DATE OF ADMISSION: 09/17/2019 REASON FOR ADMISSION: 1. Volume overload. 2. Shortness of breath. HISTORY OF PRESENT ILLNESS: The patient is a 54-year-old female on hemodialysis every Monday, , and Monday, who presented to the emergency room overnight for further evaluation and care for shortness of breath. She had called 911 as she was not feeling well. She was hypoxic and had a systolic blood pressure over 200. The patient is set for hemodialysis today. She was given IV diuretics in the emergency room. She states she has been compliant with her hemodialysis and recently had her dialysis catheter removed and they have been using her left upper extremity AV fistula. ALLERGIES: No known drug allergies. PAST MEDICAL HISTORY: 1. End-stage renal disease, on dialysis. 2. CHF. 3. Hypertension. 4. Anemia of chronic kidney disease PAST SURGICAL HISTORY: 1. AV fistula. 2. Multiple dialysis catheters. SOCIAL HISTORY: No tobacco, alcohol, or illicit drug use. FAMILY HISTORY: Positive for hypertension and diabetes. REVIEW OF SYSTEMS: NEUROLOGIC: The patient denies headache, change in vision, syncope, or presyncopal episodes. CARDIOVASCULAR: No current chest pain, palpitations, or angina. PULMONARY: Shortness of breath with productive cough. GASTROINTESTINAL/GENITOURINARY: No changes in urinary or bowel habits. No nausea, vomiting, or diarrhea. ENDOCRINOLOGY: No night sweats, fevers, or chills. MUSCULOSKELETAL: The patient is feeling weak, tired, and fatigued. PHYSICAL EXAMINATION: VITAL SIGNS: Blood pressure 120/58, respiratory rate 21, pulse 82, and temperature 98.2. 100% oxygen saturation on Venturi mask. GENERAL: The patient is awake and alert, not otherwise in distress. HEENT: Extraocular muscles intact. No lymphadenopathy noted. CARDIOVASCULAR: S1, S2. No rubs or gallops. PULMONARY: Mild upper rhonchi with positive rales. ABDOMEN: Obese, nondistended, and nontender. EXTREMITIES: 2+ pitting edema. LABORATORY DATA: Labs dated 09/17/2019, white cell count 11.5, hemoglobin 10.8, and platelet count 248,000. Sodium 138, potassium 4.7, creatinine 6.1, BUN 58. Toxicology screen is positive for marijuana. ASSESSMENT AND PLAN: 1. Shortness of breath secondary to volume overload. At this time, the patient has been ordered stat hemodialysis with 3.5 hours with 3-1/2 liters ultrafiltration. Dialysis company has been notified of stat dialysis orders. 2. Diabetes mellitus. Accu-Cheks with insulin sliding scale and long-term insulin. Continue to monitor glucose levels during hospitalization. 3. Hypertension. We will adjust medications as deemed appropriate. 4. Anemia of chronic kidney disease. Hemoglobin is currently 10.8. Hold off Epogen due to hypertensive urgency and hemoglobin greater than 10. 5. DVT prophylaxis with heparin subcutaneous. 6. GI prophylaxis with famotidine. Edward Juarez MD DR: RITCHIE JOB#: [id number] CC:
[2019-09-17] MEDS: Atorvastatin 20mg tab ORAL SCH (21:06)
[2019-09-17] MEDS: Heparin 5000 units/ml inj SUBQ SCH (21:07)
[2019-09-17] MEDS: Levemir Flexpen SUBQ SCH (21:08)
[2019-09-17] MEDS: traMADol 50mg tab ORAL PRN (22:35)
[2019-09-18] VITALS: BP 134/65
[2019-09-18 04:00] VITALS: BP 108/70
[2019-09-18] MEDS: NovoLOG Insulin Flexpen SUBQ SCH ×4 (06:09→21:14)
[2019-09-18 08:00] VITALS: BP 123/60
--- NOTE | 2019-09-18 08:21 | Nephrology Progress Note ---
Assessment/Plan Assessment/Plan: A/P 1. Shortness of breath secondary to volume overload. - Had HD yesterday - orders placed for tomorrow - Pulm cslt 2. Diabetes mellitus. Accu-Cheks with insulin sliding scale and long-term insulin. Continue to monitor glucose levels 3. Hypertension. We will adjust medications as deemed appropriate. 4. Anemia of chronic kidney disease. Hemoglobin is currently 10.8. Hold off Epogen due to hypertensive urgency and hemoglobin greater than 10. 5. DVT prophylaxis with heparin subcutaneous. 6. GI prophylaxis with famotidine. 7. Abd Pain- check amylase lipase. GI consult Subjective Date patient seen: Sep 18, 2019 Time patient seen: 08:18 ROS Limited/Unobtainable: No Allergies: Coded Allergies: No Known Allergies (Unverified , 10/13/13) Subjective Patient still little SOB and c/o of new onset abdominal pain Objective Last 24 Hour Vital Signs Date Time Temp Pulse Resp B/P (MAP) Pulse Ox O2 Delivery O2 Flow Rate FiO2 09/18/19 04:00 86 09/18/19 04:00 99.1 88 18 108/70 (83) 97 09/18/19 04:00 14.0 55 09/18/19 00:00 98.5 78 18 134/65 (88) 100 09/18/19 00:00 81 09/17/19 21:00 Venturi Mask 14.0 09/17/19 20:00 98.6 91 20 109/59 (76) 100 09/17/19 20:00 86 09/17/19 20:00 98.6 91 20 109/56 (73) 100 09/17/19 20:00 14.0 55 09/17/19 16:00 90 09/17/19 16:00 14.0 55 09/17/19 16:00 98.2 84 20 115/50 (71) 100 09/17/19 12:00 98.7 82 22 133/67 (89) 100 09/17/19 12:00 14.0 55 09/17/19 12:00 85 09/17/19 11:13 Venturi Mask 14.0 09/17/19 11:00 82 09/17/19 10:47 98.2 80 17 121/52 99 Venturi Mask Intake and Output 09/17/19 09/18/19 19:00 07:00 Intake Total 360 ml Balance 360 ml Intake Oral 360 ml # Voids 3 1 # Bowel Movements 1 1 Laboratory Tests 09/17/19 22:00: Amylase Level 96 Height (Feet): 5 Height (Inches): 2.00 Weight (Pounds): 253 General Appearance: alert, mild distress EENT: normal ENT inspection Neck: normal alignment, supple Cardiovascular: normal rate, regular rhythm Respiratory/Chest: rhonchi - bilaterally Abdomen: non tender, soft Edema: 1+ Arm (L), 1+ Arm (R), 1+ Leg (L), 1+ Leg (R), 1+ Pedal (L), 1+ Pedal ( R), 1+ Generalized Edward Juarez MD Sep 18, 2019 08:21
[2019-09-18 09:09] LABS: BASOPHILS % (AUTO) 1.2 % (0.0-2.0); EOSINOPHILS % (AUTO) 1.5 % (0.0-3.0); HEMATOCRIT 32.2 % (37.0-47.0); HEMOGLOBIN 10.2 G/DL (12.0-16.0); LYMPHOCYTES % (AUTO) 23.4 % (20.0-45.0); MEAN CORPUSCULAR VOLUME 93 FL (80-99); MONOCYTES % (AUTO) 3.8 % (1.0-10.0); NEUTROPHILS % (AUTO) 70.1 % (45.0-75.0); PLATELET COUNT 205 K/UL (150-450); RED BLOOD COUNT 3.47 M/UL (4.20-5.40); RED CELL DISTRIBUTION WIDTH 14.3 % (11.6-14.8); WHITE BLOOD COUNT 9.6 K/UL (4.8-10.8)
[2019-09-18] MEDS: Atenolol 25mg tab ORAL SCH (09:34)
[2019-09-18] MEDS: Heparin 5000 units/ml inj SUBQ SCH ×2 (09:35→21:15)
[2019-09-18 09:39] LABS: ANION GAP 11 mmol/L (5-15); BLOOD UREA NITROGEN 39 mg/dL (7-18); CALCIUM 7.6 MG/DL (8.5-10.1); CARBON DIOXIDE 28 MMOL/L (21-32); CHLORIDE 100 MMOL/L (98-107); CREATININE 4.8 MG/DL (0.55-1.30); POTASSIUM 4.6 MMOL/L (3.5-5.1); SODIUM 138 MMOL/L (136-145)
[2019-09-18] MEDS: Levemir Flexpen SUBQ SCH ×2 (09:50→21:14)
[2019-09-18 12:00] VITALS: BP 116/59
[2019-09-18 16:00] VITALS: BP 112/60
[2019-09-18] MEDS: traMADol 50mg tab ORAL PRN (17:33)
[2019-09-18 20:00] VITALS: BP 113/75
[2019-09-18] MEDS: Atorvastatin 20mg tab ORAL SCH (21:15)
[2019-09-19] VITALS: BP 130/62
[2019-09-19] MEDS: traMADol 50mg tab ORAL PRN ×3 (02:16→23:17)
[2019-09-19 04:00] VITALS: BP 113/64
[2019-09-19] MEDS: NovoLOG Insulin Flexpen SUBQ SCH ×4 (06:03→20:37)
[2019-09-19 07:17] LABS: BASOPHILS % (AUTO) 1.7 % (0.0-2.0); EOSINOPHILS % (AUTO) 3.2 % (0.0-3.0); HEMATOCRIT 33.6 % (37.0-47.0); HEMOGLOBIN 10.8 G/DL (12.0-16.0); LYMPHOCYTES % (AUTO) 33.3 % (20.0-45.0); MEAN CORPUSCULAR VOLUME 92 FL (80-99); MONOCYTES % (AUTO) 5.9 % (1.0-10.0); PLATELET COUNT 211 K/UL (150-450); RED BLOOD COUNT 3.65 M/UL (4.20-5.40); RED CELL DISTRIBUTION WIDTH 13.8 % (11.6-14.8); WHITE BLOOD COUNT 7.4 K/UL (4.8-10.8)
[2019-09-19 07:39] LABS: ALANINE AMINOTRANSFERASE 17 U/L (12-78); ALBUMIN 3.2 G/DL (3.4-5.0); ALBUMIN/GLOBULIN RATIO 0.6 (1.0-2.7); ALKALINE PHOSPHATASE 303 U/L (46-116); ANION GAP 8 mmol/L (5-15); ASPARTATE AMINO TRANSFERASE 14 U/L (15-37); BILIRUBIN,TOTAL 0.6 MG/DL (0.2-1.0); BLOOD UREA NITROGEN 48 mg/dL (7-18); CALCIUM 9.2 MG/DL (8.5-10.1); CARBON DIOXIDE 29 MMOL/L (21-32); CHLORIDE 100 MMOL/L (98-107); CREATININE 5.9 MG/DL (0.55-1.30); POTASSIUM 4.6 MMOL/L (3.5-5.1); SODIUM 137 MMOL/L (136-145)
[2019-09-19 08:00] VITALS: BP 125/88
--- NOTE | 2019-09-19 08:46 | Nephrology Progress Note ---
Assessment/Plan Assessment/Plan: A/P 1. Shortness of breath secondary to volume overload. - HD TTS for now - Pulm cslt 2. Diabetes mellitus. Accu-Cheks with insulin sliding scale and long-term insulin. 3. Hypertension. Stable 4. Anemia of chronic kidney disease. Hgb stable 5. DVT prophylaxis with heparin subcutaneous. 6. GI prophylaxis with famotidine. 7. Abd Pain- per GI. CT Abd pending - NPO Subjective Date patient seen: Sep 19, 2019 Time patient seen: 08:44 ROS Limited/Unobtainable: No Allergies: Coded Allergies: No Known Allergies (Unverified , 10/13/13) Subjective Patient still little SOB. NPO due to belly pain Objective Last 24 Hour Vital Signs Date Time Temp Pulse Resp B/P (MAP) Pulse Ox O2 Delivery O2 Flow Rate FiO2 09/19/19 08:00 97.0 75 18 125/88 (100) 100 09/19/19 04:00 14.0 55 09/19/19 04:00 98.2 79 20 113/64 (80) 99 09/19/19 04:00 80 09/19/19 02:46 98.8 09/19/19 00:00 73 09/19/19 00:00 98.8 75 20 130/62 (84) 09/18/19 21:00 Venturi Mask 14.0 09/18/19 20:00 14.0 55 09/18/19 20:00 98.1 75 20 113/75 (88) 09/18/19 16:17 14.0 55 09/18/19 16:00 70 09/18/19 16:00 98.4 70 18 112/60 (77) 100 09/18/19 12:00 14.0 55 09/18/19 12:00 98.2 77 19 116/59 (78) 100 09/18/19 12:00 77 09/18/19 09:34 77 123/60 09/18/19 09:00 Venturi Mask 14.0 Intake and Output 09/18/19 09/19/19 19:00 07:00 # Voids 3 # Bowel Movements 1 1 Laboratory Tests 09/19/19 06:20: White Blood Count 7.4, Red Blood Count 3.65L, Hemoglobin 10.8L, Hematocrit 33.6L , Mean Corpuscular Volume 92, Mean Corpuscular Hemoglobin 29.5, Mean Corpuscular Hemoglobin Concent 32.0, Red Cell Distribution Width 13.8, Platelet Count 211, Mean Platelet Volume 7.8, Neutrophils (%) (Auto) 56.0, Lymphocytes (% ) (Auto) 33.3, Monocytes (%) (Auto) 5.9, Eosinophils (%) (Auto) 3.2H, Basophils (%) (Auto) 1.7, Sodium Level 137, Potassium Level 4.6, Chloride Level 100, Carbon Dioxide Level 29, Anion Gap 8, Blood Urea Nitrogen 48H, Creatinine 5.9H, Estimat Glomerular Filtration Rate 9.0, Glucose Level 153H, Calcium Level 9.2#, Total Bilirubin 0.6, Aspartate Amino Transf (AST/SGOT) 14L, Alanine Aminotransferase (ALT/SGPT) 17, Alkaline Phosphatase 303H, Total Protein 8.3H, Albumin 3.2L, Globulin 5.1, Albumin/Globulin Ratio 0.6L, Lipase 331 Height (Feet): 5 Height (Inches): 2.00 Weight (Pounds): 253 General Appearance: no apparent distress, alert EENT: normal ENT inspection Neck: normal alignment, supple Cardiovascular: normal rate, regular rhythm Respiratory/Chest: lungs clear, normal breath sounds Abdomen: non tender, soft Edema: 1+ Arm (L), 1+ Arm (R), 1+ Leg (L), 1+ Leg (R), 1+ Pedal (L), 1+ Pedal ( R), 1+ Generalized Edward Juarez MD Sep 19, 2019 08:45
[2019-09-19] MEDS: Atenolol 25mg tab ORAL SCH (09:00)
[2019-09-19] MEDS: Heparin 5000 units/ml inj SUBQ SCH ×2 (09:15→20:38)
[2019-09-19] MEDS ORDERED: Aspirin Baby 81mg ORAL SCH (10:00)
[2019-09-19] MEDS: Levemir Flexpen SUBQ SCH ×2 (10:14→20:36)
[2019-09-19 12:15] VITALS: BP 105/58
--- NOTE | 2019-09-19 13:15 | Diagnostic Imaging Report ---
Indication: Abdominal pain Technique: Spiral acquisitions obtained through the abdomen and pelvis. Patient ingested oral contrast. No IV contrast utilized, reason not stated. Multiplanar reconstructions were generated. Total dose length product 2774 mGycm. CTDIvol(s) 50 mGy. Dose reduction achieved using automated exposure control Comparison: 09/18/2016 Findings: The appendix is not definitely visualized, but no findings to suggest acute appendicitis are evident. There is no evidence of colonic diverticulosis or diverticulitis. No small bowel distention or small bowel wall thickening. No free or loculated intraperitoneal gas or fluid is evident. The distal esophagus, stomach, duodenum are unremarkable. Lack of IV contrast limits assessment of the solid organs. The liver there is somewhat enlarged, as previously. The gallbladder, bile ducts, pancreas, spleen, adrenals are unremarkable. The left kidney is absent. The right kidney demonstrates punctate calyceal calculi which are not evident on the prior study. No ureteral calculi, hydronephrosis, or hydroureter. No retroperitoneal or mesenteric mass or adenopathy. No pelvic mass or adenopathy. The uterus and adnexal structures are unremarkable. The included lung bases demonstrate scarring and dependent atelectatic changes. The bones demonstrate degenerative spondylosis changes. Impression: No acute abnormality demonstrated Absent left kidney, also previous reported. Correlate with surgical history Nonobstructive right intrarenal calculi, new since previous study Basilar pulmonary scarring and dependent atelectasis, degenerative spondylosis incidentally noted The CT scanner at [facility] is accredited by the [employer] and the scans are performed using protocols designed to limit radiation exposure to as low as reasonably achievable to attain images of sufficient resolution adequate for diagnostic evaluation.
--- NOTE | 2019-09-19 13:28 | Consultation ---
Consult Note Consult Note HISTORY OF PRESENT ILLNESS: The patient is a 54-year-old female on hemodialysis every Monday, , and Monday, who presented to the emergency room overnight for further evaluation and care for shortness of breath. She had called 911 as she was not feeling well. She was hypoxic and had a systolic blood pressure over 200. The patient is set for hemodialysis today. She was given IV diuretics in the emergency room. She states she has been compliant with her hemodialysis and recently had her dialysis catheter removed and they have been using her left upper extremity AV fistula. I was asked to assist with pulmonary management ALLERGIES: No known drug allergies. PAST MEDICAL HISTORY: 1. End-stage renal disease, on dialysis. 2. CHF. 3. Hypertension. 4. Anemia of chronic kidney disease PAST SURGICAL HISTORY: 1. AV fistula. 2. Multiple dialysis catheters. SOCIAL HISTORY: No tobacco, alcohol, or illicit drug use. FAMILY HISTORY: Positive for hypertension and diabetes. REVIEW OF SYSTEMS: NEUROLOGIC: The patient denies headache, change in vision, syncope, or presyncopal episodes. CARDIOVASCULAR: No current chest pain, palpitations, or angina. PULMONARY: Shortness of breath with productive cough. GASTROINTESTINAL/GENITOURINARY: No changes in urinary or bowel habits. No nausea, vomiting, or diarrhea. ENDOCRINOLOGY: No night sweats, fevers, or chills. MUSCULOSKELETAL: The patient is feeling weak, tired, and fatigued. PHYSICAL EXAMINATION: VITAL SIGNS: Blood pressure 128/58, respiratory rate 21, pulse 82, and temperature 98.2. 100% oxygen saturation on Venturi mask. GENERAL: The patient is awake and alert, not otherwise in distress. HEENT: Extraocular muscles intact. No lymphadenopathy noted. CARDIOVASCULAR: S1, S2. No rubs or gallops. PULMONARY: Mild upper rhonchi with positive rales. ABDOMEN: Obese, nondistended, and nontender. EXTREMITIES: 2+ pitting edema. LABORATORY DATA: Labs dated 09/17/2019, white cell count 11.5, hemoglobin 10.8, and platelet count 248,000. Sodium 138, potassium 4.7, creatinine 6.1, BUN 58. Toxicology screen is positive for marijuana. ASSESSMENT AND PLAN: 1. Shortness of breath secondary to volume overload. 2. Diabetes mellitus. 3. Hypertension. 4. Anemia of chronic kidney disease. 5. DVT prophylaxis with heparin subcutaneous. 6. GI prophylaxis with famotidine. Laureano order O2 and pulmonary hygiene MD Sandee Mcdonough Omar Syed MD Sep 19, 2019 13:28
[2019-09-19 16:00] VITALS: BP 120/83
--- NOTE | 2019-09-19 16:15 | Consultation ---
DATE OF CONSULTATION: 09/18/2019 GASTROENTEROLOGY CONSULTATION CONSULTING PHYSICIAN: Anya Villanueva M.D. CHIEF COMPLAINT: I was asked to see this patient by Dr. Edward Juarez for evaluation of epigastric abdominal discomfort. HISTORY OF PRESENT ILLNESS: The patient is a 54-year-old woman with obesity and multiple medical problems, who comes into the hospital due to shortness of breath. The patient has been evaluated for her primary symptoms as she has been complaining of epigastric abdominal pain for about two days. She has had no nausea or vomiting. She never had endoscopy or colonoscopy. She has been on omeprazole daily for about a year for abdominal discomfort. She is on hemodialysis for about 2 years. She had amylase and lipase drawn showing some mild elevation in lipase. PAST MEDICAL HISTORY: History of end-stage renal disease on dialysis, congestive heart failure, hypertension, obesity, history of anemia of chronic disease. ALLERGIES: None. PAST SURGICAL HISTORY: Status post AV fistula placement, history of multiple dialysis catheters. FAMILY HISTORY: Positive for hypertension and diabetes. SOCIAL HISTORY: The patient does not smoke, drink alcohol, or use drugs. REVIEW OF SYSTEMS: Otherwise negative. PHYSICAL EXAMINATION: GENERAL: Obese woman, seen in her room. HEENT: Normocephalic and atraumatic. Sclerae anicteric. Oropharynx clear. NECK: Supple. CHEST: Reveals scattered rhonchi. CARDIOVASCULAR: Revealed a regular rate. ABDOMEN: Soft with some mild epigastric abdominal tenderness without guarding or rebound. EXTREMITIES: Revealed trace edema. LABORATORY DATA: Noted. ASSESSMENT: This patient presents with vague epigastric abdominal discomfort of unclear etiology. Differential diagnosis include H. pylori infection versus other disorder. The patient does have mild elevation in her lipase, but this may not represent acute pancreatitis. Recheck CT scan of the abdomen and pelvis to further evaluate this possibly. RECOMMENDATIONS: 1. CT scan of the abdomen and pelvis. 2. Follow laboratory parameters and exam. 3. Advance diet as tolerated. 4. Check stool for occult blood and Helicobacter pylori Thank you for asking me to participate in the of care this patient. Anya Villanueva M.D. DR: Maria Luisa JOB#: [id number] CC: RABIA
[2019-09-19] MEDS ORDERED: SIMVASTATIN40 MG ORAL (18:30)
[2019-09-19] MEDS ORDERED: GABAPENTIN100 MG ORAL (18:30)
[2019-09-19] MEDS ORDERED: NICOTINE1 EAC2 TD (18:35)
[2019-09-19] MEDS ORDERED: SENNA PLUS TAB1 EAC1 PO (18:35)
[2019-09-19] MEDS ORDERED: CYMBALTA30 MG ORAL (18:35)
[2019-09-19] MEDS ORDERED: LOSARTAN POTASS50 MG ORAL (18:35)
[2019-09-19] MEDS ORDERED: SENNA8.6 M2 PO (18:35)
[2019-09-19] MEDS ORDERED: PANTOPRAZOLE SO40 MG ORAL (18:35)
[2019-09-19] MEDS ORDERED: CATAPRES0.1 MG ORAL (18:35)
[2019-09-19] MEDS ORDERED: ACETAMINOPHEN-1 EAC1 ORAL (18:37)
[2019-09-19] MEDS ORDERED: ACETAMINOPHEN500 M3 ORAL (18:37)
[2019-09-19 20:00] VITALS: BP 108/67
[2019-09-19] MEDS: Atorvastatin 20mg tab ORAL SCH (20:35)
--- NOTE | 2019-09-19 23:19 | General Progress Note ---
Assessment/Plan Assessment/Plan: Assessment - Epigastric pain, improved - ESRD - CHF - HTN - Obesity Recommendations - advance diet - Pepcid - follow symptoms and exam - will consider EGD if symptoms persits Subjective Allergies: Coded Allergies: No Known Allergies (Unverified , 10/13/13) Subjective notes improved epigastric pain had CT - negative wants to advance diet Objective Last 24 Hour Vital Signs Date Time Temp Pulse Resp B/P (MAP) Pulse Ox O2 Delivery O2 Flow Rate FiO2 09/19/19 20:00 98.6 86 18 108/67 (81) 96 09/19/19 16:00 97.0 88 17 120/83 (95) 95 09/19/19 12:15 98.2 88 18 105/58 (74) 100 09/19/19 09:00 14.0 55 09/19/19 09:00 75 09/19/19 09:00 125/88 09/19/19 09:00 75 125/88 09/19/19 09:00 Venturi Mask 14.0 09/19/19 08:00 97.0 75 18 125/88 (100) 100 09/19/19 04:00 14.0 55 09/19/19 04:00 98.2 79 20 113/64 (80) 99 09/19/19 04:00 80 09/19/19 02:46 98.8 09/19/19 00:00 73 09/19/19 00:00 98.8 75 20 130/62 (84) Intake and Output 09/18/19 09/19/19 19:00 07:00 # Voids 3 # Bowel Movements 1 1 Laboratory Tests 09/19/19 06:20: White Blood Count 7.4, Red Blood Count 3.65L, Hemoglobin 10.8L, Hematocrit 33.6L , Mean Corpuscular Volume 92, Mean Corpuscular Hemoglobin 29.5, Mean Corpuscular Hemoglobin Concent 32.0, Red Cell Distribution Width 13.8, Platelet Count 211, Mean Platelet Volume 7.8, Neutrophils (%) (Auto) 56.0, Lymphocytes (% ) (Auto) 33.3, Monocytes (%) (Auto) 5.9, Eosinophils (%) (Auto) 3.2H, Basophils (%) (Auto) 1.7, Sodium Level 137, Potassium Level 4.6, Chloride Level 100, Carbon Dioxide Level 29, Anion Gap 8, Blood Urea Nitrogen 48H, Creatinine 5.9H, Estimat Glomerular Filtration Rate 9.0, Glucose Level 153H, Calcium Level 9.2#, Total Bilirubin 0.6, Aspartate Amino Transf (AST/SGOT) 14L, Alanine Aminotransferase (ALT/SGPT) 17, Alkaline Phosphatase 303H, Total Protein 8.3H, Albumin 3.2L, Globulin 5.1, Albumin/Globulin Ratio 0.6L, Lipase 331 Height (Feet): 5 Height (Inches): 2.00 Weight (Pounds): 253 Objective Obese AAW NCAT supple CTA RRR abd soft ND NT no edema Anya Villanueva MD Sep 19, 2019 23:19
[2019-09-20] VITALS: BP 115/74
[2019-09-20 04:00] VITALS: BP 118/68
[2019-09-20] MEDS: NovoLOG Insulin Flexpen SUBQ SCH ×4 (06:18→21:25)
[2019-09-20 07:24] LABS: BASOPHILS % (AUTO) 1.9 % (0.0-2.0); EOSINOPHILS % (AUTO) 1.9 % (0.0-3.0); HEMATOCRIT 35.4 % (37.0-47.0); HEMOGLOBIN 11.4 G/DL (12.0-16.0); LYMPHOCYTES % (AUTO) 26.2 % (20.0-45.0); MEAN CORPUSCULAR VOLUME 92 FL (80-99); MONOCYTES % (AUTO) 6.9 % (1.0-10.0); NEUTROPHILS % (AUTO) 63.1 % (45.0-75.0); PLATELET COUNT 216 K/UL (150-450); RED BLOOD COUNT 3.84 M/UL (4.20-5.40); WHITE BLOOD COUNT 8.2 K/UL (4.8-10.8)
[2019-09-20 07:30] LABS: ANION GAP 6 mmol/L (5-15); BLOOD UREA NITROGEN 38 mg/dL (7-18); CALCIUM 8.9 MG/DL (8.5-10.1); CARBON DIOXIDE 32 MMOL/L (21-32); CHLORIDE 97 MMOL/L (98-107); CREATININE 5.7 MG/DL (0.55-1.30); POTASSIUM 4.8 MMOL/L (3.5-5.1); SODIUM 135 MMOL/L (136-145)
[2019-09-20 08:00] VITALS: BP 99/59
--- NOTE | 2019-09-20 08:23 | Pulmonology Progress Note ---
Assessment/Plan Assessment/Plan ASSESSMENT AND PLAN: 1. Shortness of breath secondary to volume overload. 2. Diabetes mellitus. 3. Hypertension. 4. Anemia of chronic kidney disease. 5. DVT prophylaxis with heparin subcutaneous. 6. GI prophylaxis with famotidine. Continue O2 and pulmonary hygiene Pastor Ignacio MD Subjective Interval Events: None new reported Constitutional: Reports: no symptoms HEENT: Repors: no symptoms Respiratory: Reports: no symptoms Cardiovascular: Reports: no symptoms Allergies: Coded Allergies: No Known Allergies (Unverified , 10/13/13) Objective Last 24 Hour Vital Signs Date Time Temp Pulse Resp B/P (MAP) Pulse Ox O2 Delivery O2 Flow Rate FiO2 09/20/19 04:00 98.9 78 17 118/68 (85) 99 09/20/19 00:00 99.2 80 18 115/74 (88) 96 09/19/19 21:00 Venturi Mask 14.0 09/19/19 20:00 98.6 86 18 108/67 (81) 96 09/19/19 16:00 97.0 88 17 120/83 (95) 95 09/19/19 12:15 98.2 88 18 105/58 (74) 100 09/19/19 09:00 14.0 55 09/19/19 09:00 75 09/19/19 09:00 125/88 09/19/19 09:00 75 125/88 09/19/19 09:00 Venturi Mask 14.0 Intake and Output 09/19/19 09/20/19 19:00 07:00 # Voids 3 2 # Bowel Movements 1 1 General Appearance: no acute distress HEENT: normocephalic Respiratory/Chest: chest wall non-tender, decreased breath sounds Cardiovascular: normal peripheral pulses Abdomen: normal bowel sounds Laboratory Tests 09/20/19 06:30: White Blood Count 8.2, Red Blood Count 3.84L, Hemoglobin 11.4L, Hematocrit 35.4L , Mean Corpuscular Volume 92, Mean Corpuscular Hemoglobin 29.6, Mean Corpuscular Hemoglobin Concent 32.1, Red Cell Distribution Width 14.0, Platelet Count 216, Mean Platelet Volume 7.8, Neutrophils (%) (Auto) 63.1, Lymphocytes (% ) (Auto) 26.2, Monocytes (%) (Auto) 6.9, Eosinophils (%) (Auto) 1.9, Basophils ( %) (Auto) 1.9, Sodium Level 135L, Potassium Level 4.8, Chloride Level 97L, Carbon Dioxide Level 32, Anion Gap 6, Blood Urea Nitrogen 38H, Creatinine 5.7H, Estimat Glomerular Filtration Rate 9.3, Glucose Level 168H, Calcium Level 8.9 Current Medications Medications (Trade) Dose Ordered Sig/Katya Route PRN Reason Start Time Stop Time Status Last Admin Dose Admin Acetaminophen (Tylenol) 650 mg Q4H PRN ORAL Mild Pain (Pain Scale 1-3) 09/19/19 13:45 10/17/19 09:44 Aripiprazole (Abilify) 5 mg DAILY ORAL 09/20/19 09:00 10/18/19 08:59 Aspirin (ASA) 81 mg DAILY ORAL 09/20/19 09:00 10/19/19 09:59 Atenolol (Tenormin) 25 mg DAILY ORAL 09/20/19 09:00 10/18/19 08:59 Atorvastatin Calcium (Lipitor) 40 mg QHS ORAL 09/19/19 21:00 10/17/19 20:59 09/19/19 20:35 Barium Sulfate (Readi-Cat 2) 450 ml NOW PRN ORAL Radiology Procedure 09/19/19 12:15 09/21/19 12:14 Benazepril HCl (Lotensin) 40 mg DAILY ORAL 09/20/19 09:00 10/19/19 08:59 Dextrose (Dextrose 50%) 25 ml Q30M PRN IV Hypoglycemia 09/19/19 12:15 10/17/19 09:44 Dextrose (Dextrose 50%) 50 ml Q30M PRN IV Hypoglycemia 09/19/19 12:15 10/17/19 09:44 Famotidine (Pepcid) 20 mg DAILY ORAL 09/20/19 09:00 10/18/19 08:59 Gabapentin (Neurontin) 100 mg THREE TIMES A DAY ORAL 09/19/19 13:00 10/19/19 09:59 09/19/19 19:05 Heparin Sodium (Porcine) (Heparin 5000 units/ml) 5,000 units EVERY 12 HOURS SUBQ 09/19/19 21:00 10/17/19 20:59 09/19/19 20:38 Insulin Aspart (NovoLOG) BEFORE MEALS AND HS SUBQ 09/19/19 16:30 10/17/19 11:29 09/20/19 06:18 Insulin Detemir (Levemir) 6 units Q12HR SUBQ 09/19/19 21:00 10/17/19 20:59 09/19/19 20:36 Ondansetron HCl (Zofran) 4 mg Q6H PRN IVP Nausea & Vomiting 09/19/19 12:15 10/17/19 12:14 09/19/19 22:29 Pantoprazole (Protonix) 40 mg DAILY@0630 ORAL 09/20/19 06:30 10/19/19 06:29 09/20/19 06:17 Tramadol HCl (Ultram) 50 mg Q8H PRN ORAL pain 09/19/19 12:15 09/26/19 12:14 09/19/19 23:17 Pastor Ignacio MD Sep 20, 2019 08:23
[2019-09-20] MEDS: Aspirin Baby 81mg ORAL SCH (08:29)
[2019-09-20] MEDS: Heparin 5000 units/ml inj SUBQ SCH ×2 (08:29→21:22)
[2019-09-20] MEDS: traMADol 50mg tab ORAL PRN ×2 (08:31→18:22)
[2019-09-20] MEDS: Atenolol 25mg tab ORAL SCH (08:36)
--- NOTE | 2019-09-20 08:37 | Nephrology Progress Note ---
Assessment/Plan Assessment/Plan: A/P 1. Shortness of breath secondary to volume overload. - HD TTS - Pulm cslt. Resolved with HD/UF 2. Diabetes mellitus. Accu-Cheks with insulin sliding scale and long-term insulin. 3. Hypertension. Stable 4. Anemia of chronic kidney disease. Hgb stable - EPO if Hgb <10 5. DVT prophylaxis with heparin subcutaneous. 6. GI prophylaxis with famotidine. 7. Abd Pain- per GI. CT Abd neg - mgmt per GI, patient declining discharge Subjective Date patient seen: Sep 20, 2019 Time patient seen: 08:35 ROS Limited/Unobtainable: No Allergies: Coded Allergies: No Known Allergies (Unverified , 10/13/13) Subjective Patient still c/o abd pain with eating Objective Last 24 Hour Vital Signs Date Time Temp Pulse Resp B/P (MAP) Pulse Ox O2 Delivery O2 Flow Rate FiO2 09/20/19 04:00 98.9 78 17 118/68 (85) 99 09/20/19 00:00 99.2 80 18 115/74 (88) 96 09/19/19 21:00 Venturi Mask 14.0 09/19/19 20:00 98.6 86 18 108/67 (81) 96 09/19/19 16:00 97.0 88 17 120/83 (95) 95 09/19/19 12:15 98.2 88 18 105/58 (74) 100 09/19/19 09:00 14.0 55 09/19/19 09:00 75 09/19/19 09:00 125/88 09/19/19 09:00 75 125/88 09/19/19 09:00 Venturi Mask 14.0 Intake and Output 09/19/19 09/20/19 19:00 07:00 # Voids 3 2 # Bowel Movements 1 1 Laboratory Tests 09/20/19 06:30: White Blood Count 8.2, Red Blood Count 3.84L, Hemoglobin 11.4L, Hematocrit 35.4L , Mean Corpuscular Volume 92, Mean Corpuscular Hemoglobin 29.6, Mean Corpuscular Hemoglobin Concent 32.1, Red Cell Distribution Width 14.0, Platelet Count 216, Mean Platelet Volume 7.8, Neutrophils (%) (Auto) 63.1, Lymphocytes (% ) (Auto) 26.2, Monocytes (%) (Auto) 6.9, Eosinophils (%) (Auto) 1.9, Basophils ( %) (Auto) 1.9, Sodium Level 135L, Potassium Level 4.8, Chloride Level 97L, Carbon Dioxide Level 32, Anion Gap 6, Blood Urea Nitrogen 38H, Creatinine 5.7H, Estimat Glomerular Filtration Rate 9.3, Glucose Level 168H, Calcium Level 8.9 Height (Feet): 5 Height (Inches): 2.00 Weight (Pounds): 253 General Appearance: no apparent distress, alert EENT: normal ENT inspection Neck: normal alignment, supple Cardiovascular: normal rate, regular rhythm Respiratory/Chest: lungs clear, normal breath sounds Abdomen: non tender, soft Edema: no edema noted Arm (L), no edema noted Arm (R), no edema noted Leg (L), no edema noted Leg (R), no edema noted Pedal (L), no edema noted Pedal (R), no edema noted Generalized Edward Juarez MD Sep 20, 2019 08:37
[2019-09-20] MEDS: Levemir Flexpen SUBQ SCH ×2 (10:34→21:29)
[2019-09-20 12:00] VITALS: BP 100/60
[2019-09-20 16:00] VITALS: BP 108/61
--- NOTE | 2019-09-20 19:03 | General Progress Note ---
Assessment/Plan Assessment/Plan: Assessment - Epigastric pain,? etiology - no improvement with H2B - ESRD - CHF - HTN - Obesity Recommendations - po diet as tolerated - Continue Pepcid - follow symptoms and exam - EGD next week if symptoms persist Subjective Allergies: Coded Allergies: No Known Allergies (Unverified , 10/13/13) Subjective reports epigastric pain unable to eat solids no vomiting Objective Last 24 Hour Vital Signs Date Time Temp Pulse Resp B/P (MAP) Pulse Ox O2 Delivery O2 Flow Rate FiO2 09/20/19 16:00 98.4 65 16 108/61 (77) 99 09/20/19 12:00 98.4 78 17 100/60 (73) 99 09/20/19 09:00 Nasal Cannula 2.0 09/20/19 08:36 99/59 09/20/19 08:36 70 99/59 09/20/19 08:00 98.6 70 20 99/59 (72) 100 09/20/19 04:00 98.9 78 17 118/68 (85) 99 09/20/19 00:00 99.2 80 18 115/74 (88) 96 09/19/19 21:00 Venturi Mask 14.0 09/19/19 20:00 98.6 86 18 108/67 (81) 96 Intake and Output 09/19/19 09/20/19 18:59 06:59 # Voids 3 2 # Bowel Movements 1 1 Laboratory Tests 09/20/19 06:30: White Blood Count 8.2, Red Blood Count 3.84L, Hemoglobin 11.4L, Hematocrit 35.4L , Mean Corpuscular Volume 92, Mean Corpuscular Hemoglobin 29.6, Mean Corpuscular Hemoglobin Concent 32.1, Red Cell Distribution Width 14.0, Platelet Count 216, Mean Platelet Volume 7.8, Neutrophils (%) (Auto) 63.1, Lymphocytes (% ) (Auto) 26.2, Monocytes (%) (Auto) 6.9, Eosinophils (%) (Auto) 1.9, Basophils ( %) (Auto) 1.9, Sodium Level 135L, Potassium Level 4.8, Chloride Level 97L, Carbon Dioxide Level 32, Anion Gap 6, Blood Urea Nitrogen 38H, Creatinine 5.7H, Estimat Glomerular Filtration Rate 9.3, Glucose Level 168H, Calcium Level 8.9 Height (Feet): 5 Height (Inches): 2.00 Weight (Pounds): 253 Objective Obese AAW NCAT supple CTA RRR abd soft ND , (+) mild epigastric TTP no edema Anya Villanueva MD Sep 20, 2019 19:03
[2019-09-20 20:00] VITALS: BP 123/71
[2019-09-20] MEDS: Atorvastatin 20mg tab ORAL SCH (21:23)
[2019-09-21] VITALS: BP 157/78
[2019-09-21] MEDS: Morphine Sulfate 2mg/ml Inj(IV/IM USE ONLY) IVP PRN ×3 (00:23→20:17)
[2019-09-21 04:00] VITALS: BP 118/65
[2019-09-21] MEDS: NovoLOG Insulin Flexpen SUBQ SCH ×4 (06:20→20:57)
[2019-09-21 08:00] VITALS: BP 156/71
[2019-09-21] MEDS: Atenolol 25mg tab ORAL SCH (08:07)
[2019-09-21] MEDS: Aspirin Baby 81mg ORAL SCH (08:17)
[2019-09-21] MEDS: Heparin 5000 units/ml inj SUBQ SCH ×2 (08:20→20:55)
--- NOTE | 2019-09-21 08:20 | Nephrology Progress Note ---
Assessment/Plan Assessment/Plan: A/P 1. SOB- resolved from fluid overload - HD TTS 2. Diabetes mellitus. Accu-Cheks with insulin sliding scale and long-term insulin. Clear liquid 3. Hypertension. Stable 4. Anemia of chronic kidney disease. Hgb stable - EPO if Hgb <10 5. DVT prophylaxis with heparin subcutaneous. 6. GI prophylaxis with famotidine. 7. Abd Pain- per GI. CT Abd neg - mgmt per GI, patient declining discharge - EGD Monday Unclear abd pain. Unclear if organic pathology Subjective Date patient seen: Sep 21, 2019 Time patient seen: 08:17 ROS Limited/Unobtainable: No Allergies: Coded Allergies: No Known Allergies (Unverified , 10/13/13) Subjective Patient tolerating liquids. Still abd pain with solids Objective Last 24 Hour Vital Signs Date Time Temp Pulse Resp B/P (MAP) Pulse Ox O2 Delivery O2 Flow Rate FiO2 09/21/19 04:00 98.6 76 17 118/65 (82) 100 09/21/19 00:00 98.2 78 20 157/78 (104) 95 09/20/19 21:00 Nasal Cannula 2.0 09/20/19 20:00 97.7 67 18 123/71 (88) 97 09/20/19 16:00 98.4 65 16 108/61 (77) 99 09/20/19 12:00 98.4 78 17 100/60 (73) 99 09/20/19 09:00 Nasal Cannula 2.0 09/20/19 08:36 99/59 09/20/19 08:36 70 99/59 Intake and Output 09/20/19 09/21/19 19:00 07:00 Intake Total 360 ml Balance 360 ml Intake Oral 360 ml # Voids 4 2 # Bowel Movements 1 Height (Feet): 5 Height (Inches): 2.00 Weight (Pounds): 253 General Appearance: no apparent distress, alert EENT: normal ENT inspection Neck: normal alignment, supple Cardiovascular: normal rate, regular rhythm Respiratory/Chest: lungs clear, normal breath sounds Abdomen: non tender, soft Edema: no edema noted Arm (L), no edema noted Arm (R), no edema noted Leg (L), no edema noted Leg (R), no edema noted Pedal (L), no edema noted Pedal (R), no edema noted Generalized De Radames,Edward MD Sep 21, 2019 08:20
[2019-09-21] MEDS: Levemir Flexpen SUBQ SCH ×2 (08:22→20:57)
--- NOTE | 2019-09-21 10:41 | Pulmonology Progress Note ---
Assessment/Plan Assessment/Plan ASSESSMENT AND PLAN: 1. Shortness of breath secondary to volume overload. 2. Diabetes mellitus. 3. Hypertension. 4. Anemia of chronic kidney disease. 5. DVT prophylaxis with heparin subcutaneous. 6. GI prophylaxis with famotidine. Continue O2 and pulmonary hygiene aPstor Ignacio MD Subjective Interval Events: None new Constitutional: Reports: no symptoms HEENT: Repors: no symptoms Respiratory: Reports: no symptoms Cardiovascular: Reports: no symptoms Allergies: Coded Allergies: No Known Allergies (Unverified , 10/13/13) Objective Last 24 Hour Vital Signs Date Time Temp Pulse Resp B/P (MAP) Pulse Ox O2 Delivery O2 Flow Rate FiO2 09/21/19 09:00 Nasal Cannula 2.0 09/21/19 08:00 97.9 70 20 156/71 (99) 97 09/21/19 04:00 98.6 76 17 118/65 (82) 100 09/21/19 00:00 98.2 78 20 157/78 (104) 95 09/20/19 21:00 Nasal Cannula 2.0 09/20/19 20:00 97.7 67 18 123/71 (88) 97 09/20/19 16:00 98.4 65 16 108/61 (77) 99 09/20/19 12:00 98.4 78 17 100/60 (73) 99 Intake and Output 09/20/19 09/21/19 19:00 07:00 Intake Total 360 ml Balance 360 ml Intake Oral 360 ml # Voids 4 2 # Bowel Movements 1 General Appearance: no acute distress HEENT: normocephalic Respiratory/Chest: chest wall non-tender, decreased breath sounds Cardiovascular: normal peripheral pulses Current Medications Medications (Trade) Dose Ordered Sig/Katya Route PRN Reason Start Time Stop Time Status Last Admin Dose Admin Acetaminophen (Tylenol) 650 mg Q4H PRN ORAL Mild Pain (Pain Scale 1-3) 09/19/19 13:45 10/17/19 09:44 Aripiprazole (Abilify) 5 mg DAILY ORAL 09/20/19 09:00 10/18/19 08:59 09/21/19 08:18 Aspirin (ASA) 81 mg DAILY ORAL 09/20/19 09:00 10/19/19 09:59 09/21/19 08:17 Atenolol (Tenormin) 25 mg DAILY ORAL 09/20/19 09:00 10/18/19 08:59 Atorvastatin Calcium (Lipitor) 40 mg QHS ORAL 09/19/19 21:00 10/17/19 20:59 09/20/19 21:23 Barium Sulfate (Readi-Cat 2) 450 ml NOW PRN ORAL Radiology Procedure 09/19/19 12:15 09/21/19 12:14 Benazepril HCl (Lotensin) 40 mg DAILY ORAL 09/20/19 09:00 10/19/19 08:59 Dextrose (Dextrose 50%) 25 ml Q30M PRN IV Hypoglycemia 09/19/19 12:15 10/17/19 09:44 Dextrose (Dextrose 50%) 50 ml Q30M PRN IV Hypoglycemia 09/19/19 12:15 10/17/19 09:44 Famotidine (Pepcid) 20 mg DAILY ORAL 09/20/19 09:00 10/18/19 08:59 09/21/19 08:17 Gabapentin (Neurontin) 100 mg THREE TIMES A DAY ORAL 09/19/19 13:00 10/19/19 09:59 09/21/19 08:17 Heparin Sodium (Porcine) (Heparin 5000 units/ml) 5,000 units EVERY 12 HOURS SUBQ 09/19/19 21:00 10/17/19 20:59 09/21/19 08:20 Insulin Aspart (NovoLOG) BEFORE MEALS AND HS SUBQ 09/19/19 16:30 10/17/19 11:29 09/21/19 06:20 Insulin Detemir (Levemir) 6 units Q12HR SUBQ 09/19/19 21:00 10/17/19 20:59 09/21/19 08:22 Morphine Sulfate (Morphine Sulfate) 1 mg Q6H PRN IVP For Pain 09/21/19 00:15 09/28/19 00:14 09/21/19 06:51 Ondansetron HCl (Zofran) 4 mg Q6H PRN IVP Nausea & Vomiting 09/19/19 12:15 10/17/19 12:14 09/19/19 22:29 Pantoprazole (Protonix) 40 mg DAILY@0630 ORAL 09/20/19 06:30 10/19/19 06:29 09/21/19 06:34 Tramadol HCl (Ultram) 50 mg Q8H PRN ORAL pain 09/19/19 12:15 09/26/19 12:14 09/20/19 18:22 Pastor Ignacio MD Sep 21, 2019 10:41
[2019-09-21 12:00] VITALS: BP 142/54
--- NOTE | 2019-09-21 12:01 | Diagnostic Imaging Report ---
EXAM: CT Head Without Intravenous Contrast CLINICAL HISTORY: DIZZY TECHNIQUE: Axial computed tomography images of the head/brain without intravenous contrast. CTDI is 60 mGy and DLP is 1214.1 mGy-cm. One or more of the following dose reduction techniques were used: automated exposure control, adjustment of the mA and/or kV according to patient size, use of iterative reconstruction technique. COMPARISON: No relevant prior studies available. FINDINGS: Brain: No intracranial hemorrhage or mass effect. No clear edema.. Ventricles: Unremarkable. No ventriculomegaly. Bones/joints: Unremarkable. No acute fracture. Soft tissues: Unremarkable. Sinuses: Unremarkable as visualized. No acute sinusitis. Mastoid air cells: Right mastoid effusion. Suspected cerumen accounting for asymmetric opacification of the right external auditory canal.. IMPRESSION: No acute intracranial process. Right mastoid effusion.
[2019-09-21 16:00] VITALS: BP 152/80
--- NOTE | 2019-09-21 18:44 | General Progress Note ---
Assessment/Plan Assessment/Plan: Assessment - Epigastric pain,? etiology - no improvement with H2B and PPI combo - ESRD - CHF - HTN - Obesity Recommendations - po diet as tolerated - Continue Pepcid and Protonix - follow symptoms and exam - EGD Tues am Subjective Allergies: Coded Allergies: No Known Allergies (Unverified , 10/13/13) Subjective still reports epigastric pain no vomiting says was supposed to get outpatient EGD but did not materialize Objective Last 24 Hour Vital Signs Date Time Temp Pulse Resp B/P (MAP) Pulse Ox O2 Delivery O2 Flow Rate FiO2 09/21/19 16:00 98.4 88 20 152/80 (104) 98 09/21/19 12:00 97.9 70 20 142/54 (83) 100 09/21/19 09:00 Nasal Cannula 2.0 09/21/19 08:00 97.9 70 20 156/71 (99) 97 09/21/19 04:00 98.6 76 17 118/65 (82) 100 09/21/19 00:00 98.2 78 20 157/78 (104) 95 09/20/19 21:00 Nasal Cannula 2.0 09/20/19 20:00 97.7 67 18 123/71 (88) 97 Intake and Output 09/20/19 09/21/19 19:00 07:00 Intake Total 360 ml Balance 360 ml Intake Oral 360 ml # Voids 4 2 # Bowel Movements 1 Height (Feet): 5 Height (Inches): 2.00 Weight (Pounds): 253 Objective Obese AAW NCAT supple CTA RRR abd soft ND , (+) mild epigastric TTP no edema Anya Villanueva MD Sep 21, 2019 18:44
[2019-09-21 20:00] VITALS: BP_SYST 107; BP_SYST 126; BP_DIAS 65; BP_DIAS 70
[2019-09-21] MEDS: Atorvastatin 20mg tab ORAL SCH (20:54)
[2019-09-22] VITALS: BP 96/65
[2019-09-22 04:00] VITALS: BP 122/56
[2019-09-22] MEDS: NovoLOG Insulin Flexpen SUBQ SCH (05:57)
--- NOTE | 2019-09-22 07:59 | Nephrology Progress Note ---
Assessment/Plan Assessment/Plan: A/P 1. SOB- resolved - HD TTS 2. Diabetes mellitus. Accu-Cheks with insulin sliding scale and long-term insulin. Eating solid food 3. Hypertension. Stable 4. Anemia of chronic kidney disease. Hgb stable - EPO if Hgb <10 5. DVT prophylaxis with heparin subcutaneous. 6. GI prophylaxis with famotidine. 7. Abd Pain- per GI. CT Abd neg - mgmt per GI, patient declining discharge and requesting narcotics - EGD Monday and DC home Unclear abd pain. Unclear if organic pathology as patient requesting narcotics in exchange for going home Subjective Date patient seen: Sep 22, 2019 Time patient seen: 07:57 ROS Limited/Unobtainable: No Allergies: Coded Allergies: No Known Allergies (Unverified , 10/13/13) Subjective Patient eating solids. Has requested narcotics for management Objective Last 24 Hour Vital Signs Date Time Temp Pulse Resp B/P (MAP) Pulse Ox O2 Delivery O2 Flow Rate FiO2 09/22/19 04:00 98.9 85 18 122/56 (78) 96 09/22/19 00:00 97.1 87 19 96/65 (75) 94 09/21/19 21:00 Nasal Cannula 2.0 09/21/19 20:00 97.0 77 18 126/65 (85) 95 09/21/19 16:00 98.4 88 20 152/80 (104) 98 09/21/19 12:00 97.9 70 20 142/54 (83) 100 09/21/19 09:00 Nasal Cannula 2.0 09/21/19 08:00 97.9 70 20 156/71 (99) 97 Intake and Output 09/21/19 09/22/19 19:00 07:00 Intake Total 1240 ml Balance 1240 ml Intake Oral 1240 ml # Voids 6 1 Height (Feet): 5 Height (Inches): 2.00 Weight (Pounds): 253 General Appearance: no apparent distress, alert EENT: normal ENT inspection Neck: normal alignment, supple Cardiovascular: normal rate, regular rhythm Respiratory/Chest: lungs clear, normal breath sounds Abdomen: non tender, soft Edema: no edema noted Arm (L), no edema noted Arm (R), no edema noted Leg (L), no edema noted Leg (R), no edema noted Pedal (L), no edema noted Pedal (R), no edema noted Generalized Edward Juarez MD Sep 22, 2019 07:59
[2019-09-22 08:00] VITALS: BP 150/74
[2019-09-22] MEDS ORDERED: Docusate 100mg cap ORAL PRN (08:00)
[2019-09-22 08:43] VITALS: BP 150/74
[2019-09-22] MEDS: Atenolol 25mg tab ORAL SCH (08:43)
[2019-09-22] MEDS: Aspirin Baby 81mg ORAL SCH (08:43)
[2019-09-22] MEDS: Heparin 5000 units/ml inj SUBQ SCH (08:44)
[2019-09-22] MEDS: Levemir Flexpen SUBQ SCH (08:45)
--- NOTE | 2019-09-22 10:42 | Pulmonology Progress Note ---
Assessment/Plan Assessment/Plan ASSESSMENT AND PLAN: 1. Shortness of breath secondary to volume overload. 2. Diabetes mellitus. 3. Hypertension. 4. Anemia of chronic kidney disease. 5. DVT prophylaxis with heparin subcutaneous. 6. GI prophylaxis with famotidine. Continue O2 and pulmonary hygiene DC planning Pastor Ignacio MD Subjective Interval Events: None new Constitutional: Reports: no symptoms HEENT: Repors: no symptoms Respiratory: Reports: no symptoms Cardiovascular: Reports: no symptoms Gastrointestinal/Abdominal: Reports: no symptoms Allergies: Coded Allergies: No Known Allergies (Unverified , 10/13/13) Objective Last 24 Hour Vital Signs Date Time Temp Pulse Resp B/P (MAP) Pulse Ox O2 Delivery O2 Flow Rate FiO2 09/22/19 09:00 Nasal Cannula 2.0 09/22/19 08:43 150/74 09/22/19 08:43 78 150/74 09/22/19 08:00 98.2 78 18 150/74 (99) 98 09/22/19 04:00 98.9 85 18 122/56 (78) 96 09/22/19 00:00 97.1 87 19 96/65 (75) 94 09/21/19 21:00 Nasal Cannula 2.0 09/21/19 20:00 97.0 77 18 126/65 (85) 95 09/21/19 16:00 98.4 88 20 152/80 (104) 98 09/21/19 12:00 97.9 70 20 142/54 (83) 100 Intake and Output 09/21/19 09/22/19 19:00 07:00 Intake Total 1240 ml Balance 1240 ml Intake Oral 1240 ml # Voids 6 1 General Appearance: no acute distress HEENT: normocephalic Respiratory/Chest: chest wall non-tender Cardiovascular: normal peripheral pulses Abdomen: soft, non tender Current Medications Medications (Trade) Dose Ordered Sig/Katya Route PRN Reason Start Time Stop Time Status Last Admin Dose Admin Acetaminophen (Tylenol) 650 mg Q4H PRN ORAL Mild Pain (Pain Scale 1-3) 09/19/19 13:45 1/2/20 09:44 Aripiprazole (Abilify) 5 mg DAILY ORAL 09/20/19 09:00 10/18/19 08:59 09/22/19 08:43 Aspirin (ASA) 81 mg DAILY ORAL 09/20/19 09:00 10/19/19 09:59 09/22/19 08:43 Atenolol (Tenormin) 25 mg DAILY ORAL 09/20/19 09:00 10/18/19 08:59 09/22/19 08:43 Atorvastatin Calcium (Lipitor) 40 mg QHS ORAL 09/19/19 21:00 10/17/19 20:59 09/21/19 20:54 Benazepril HCl (Lotensin) 40 mg DAILY ORAL 09/20/19 09:00 10/19/19 08:59 09/22/19 08:43 Dextrose (Dextrose 50%) 25 ml Q30M PRN IV Hypoglycemia 09/19/19 12:15 10/17/19 09:44 Dextrose (Dextrose 50%) 50 ml Q30M PRN IV Hypoglycemia 09/19/19 12:15 10/17/19 09:44 Docusate Sodium (Colace) 100 mg TID PRN ORAL Constipation 09/22/19 08:00 10/22/19 07:59 Famotidine (Pepcid) 20 mg DAILY ORAL 09/20/19 09:00 10/18/19 08:59 09/22/19 08:43 Gabapentin (Neurontin) 100 mg THREE TIMES A DAY ORAL 09/19/19 13:00 10/19/19 09:59 09/22/19 08:43 Heparin Sodium (Porcine) (Heparin 5000 units/ml) 5,000 units EVERY 12 HOURS SUBQ 09/19/19 21:00 10/17/19 20:59 09/22/19 08:44 Insulin Aspart (NovoLOG) BEFORE MEALS AND HS SUBQ 09/19/19 16:30 10/17/19 11:29 09/22/19 05:57 Insulin Detemir (Levemir) 6 units Q12HR SUBQ 09/19/19 21:00 10/17/19 20:59 09/22/19 08:45 Morphine Sulfate (Morphine Sulfate) 1 mg Q6H PRN IVP For Pain 09/21/19 00:15 09/28/19 00:14 09/21/19 20:17 Ondansetron HCl (Zofran) 4 mg Q6H PRN IVP Nausea & Vomiting 09/19/19 12:15 10/17/19 12:14 09/19/19 22:29 Pantoprazole (Protonix) 40 mg DAILY@0630 ORAL 09/20/19 06:30 10/19/19 06:29 09/22/19 05:56 Pastor Ignacio MD Sep 22, 2019 10:42
--- NOTE | 2019-09-22 21:27 | General Progress Note ---
Assessment/Plan Assessment/Plan: Assessment - Epigastric pain,? etiology - no improvement with H2B and PPI combo - ESRD - CHF - HTN - Obesity Recommendations - po diet as tolerated - Continue Pepcid and Protonix - follow symptoms and exam - patient was advised to get outpatient EGD referral Subjective Allergies: Coded Allergies: No Known Allergies (Unverified , 10/13/13) Subjective Better pain gone tolerating PO wants to be d/c Objective Last 24 Hour Vital Signs Date Time Temp Pulse Resp B/P (MAP) Pulse Ox O2 Delivery O2 Flow Rate FiO2 09/22/19 09:00 Nasal Cannula 2.0 09/22/19 08:43 150/74 09/22/19 08:43 78 150/74 09/22/19 08:00 98.2 78 18 150/74 (99) 98 09/22/19 04:00 98.9 85 18 122/56 (78) 96 09/22/19 00:00 97.1 87 19 96/65 (75) 94 Intake and Output 09/21/19 09/22/19 19:00 07:00 Intake Total 1240 ml Balance 1240 ml Intake Oral 1240 ml # Voids 6 1 Height (Feet): 5 Height (Inches): 2.00 Weight (Pounds): 253 Objective Obese AAW NCAT supple CTA RRR abd soft ND ,NT no edema Anya Villanueva MD Sep 22, 2019 21:27
--- NOTE | 2019-09-23 11:45 | Discharge Summary ---
Discharge Summary Discharge Summary _ DATE OF ADMISSION: 09/17/2019 DATE OF DISCHARGE: 09/22/2019 DISCHARGED BY: Dr. Juarez REASON FOR ADMISSION: CONSULTANTS: pulmonary Dr. Ignacio GI specialist Dr. Villanueva 54 years old female with history of end-stage renal disease, on hemodialysis, presented with chief complaint of shortness of breath. Onset happened about an hour and half prior to presentation to ED , and patient called paramedics. Per triple drum operator s, patient was hypoxic , and blood pressure was elevated with systolic being over 200. Patient was wheezing. Patient received nitroglycerin, albuterol and was placed on the CPAP. Patient subsequently was brought to emergency room for further evaluation. Patient reported that her shortness of breath worse with exertion and when lying flat . Patient reported similar symptoms in the past. She denied chest pain. She denied diaphoresis. Upon evaluation in emergency department blood pressure was improved down to 141 /106. Pulse oximetry was 95% on the BiPAP. Patient still was tachypneic with respiratory rate of 28. Laboratory work-up revealed mild leukocytosis WBC 11.5, hemoglobin 10.8, hematocrit 34.7. BUN 58, creatinine 6.1, consistent with known history of end-stage renal disease. Glucose 448. Anion gap stable, potassium 4.7. Troponin negative. pro BNP 4089. EKG revealed sinus rhythm no acute ischemic changes. Urine toxicology screen was positive for marijuana. Urinalysis revealed no evidence of urinary tract infection. Chest x-ray demonstrated pulmonary venous congestion. Patient presented with acute respiratory distress , probably secondary to flash pulmonary edema. Patient was placed on the BiPAP and received nebulizing treatment with bronchodilator as well as Lasix. She diuresed well. Patient was able to be weaned off BiPAP while still in the emergency department. No evidence of hyperkalemia. Patient admitted for further management. CONSULTANTS computer aided design technician Dr. Ignacio GI specialist Dr. Villanueva route vending machine servicer betting clerk/oncologist surgery psychiatrist HOSPITAL COURSE: Patient admitted to telemetry floor. Hemodialysis with ultrafiltration was ordered stat. Volumes, renal parameters and electrolytes were closely monitored. Antihypertensive regimen was optimized to keep blood pressure under control. Blood pressure was managed with beta-marianna and NATAN inhibitor. Statin continued. Blood pressure stabilized. Blood sugar was managed with long-acting Levemir and sliding scale of insulin as needed. Blood sugar was closely monitored. Diabetic diet provided. Patient was counseled on compliance with medication regimen. Hemoglobin and hematocrit were closely monitored with goal to keep hemoglobin above 7. Epogen was hold due to hypertensive urgency and due to hemoglobin being above 10. DVT and GI prophylaxis provided. Supportive care provided. GI specialist consulted due to complaint of epigastric pain. CT of the abdomen and pelvis revealed no acute abnormality. Patient started on combination with H2 marianna and PPI without much improvement. Pain management was addressed. Diet provided as tolerated. Patient was advised to have an outpatient EGD referral as per insurance. Patient clinically stabilized and was ready for discharge home. FINAL DIAGNOSES: Shortness of breath likely secondary to volume overload -resolved End-stage renal disease, on hemodialysis Hypertension with initial hypertensive urgency Diabetes mellitus with initial hyperglycemia-Improved Anemia of chronic kidney disease Obesity Congestive heart failure Epigastric pain of unclear etiology DISCHARGE MEDICATIONS: See Medication Reconciliation list. DISCHARGE INSTRUCTIONS: Patient was discharged home. Follow-up with a primary care provider in 1 week to obtain referral for outpatient EGD. Follow-up with outpatient hemodialysis as scheduled. I have been assigned to dictate discharge summary for this account. I was not involved in the patient's management. Shelly Andrea NP Sep 23, 2019 11:45
== END 2019-09-22 10:35 | disposition home or self-care (01) | DRG 194 ==
LOC: EDBD 02:33 → EMR 02:57 → 2E 04:04 → EDBEDREQ 09:32 → 4E 09-19 11:54
PROC: 5A1D70Z Performance of Urinary Filtration, Intermittent, Less than 6 Hours Per Day (ICD-10-PCS; principal; 2019-09-17)
PROC: 5A1D70Z Performance of Urinary Filtration, Intermittent, Less than 6 Hours Per Day (ICD-10-PCS; 2019-09-18)
DX: I13.2 Hypertensive heart and chronic kidney disease with heart failure and with stage 5 chronic kidney disease, or end stage renal disease (principal); N18.6 End stage renal disease; E66.01 Morbid (severe) obesity due to excess calories; Z68.42 Body mass index [BMI] 45.0-49.9, adult; I50.9 Heart failure, unspecified; E11.22 Type 2 diabetes mellitus with diabetic chronic kidney disease; E11.65 Type 2 diabetes mellitus with hyperglycemia; Z99.2 Dependence on renal dialysis; J96.01 Acute respiratory failure with hypoxia; R60.9 Edema, unspecified; R10.13 Epigastric pain; D63.1 Anemia in chronic kidney disease; I16.0 Hypertensive urgency; D72.829 Elevated white blood cell count, unspecified
CPT/HCPCS: 36415; 70450; 71045; 74176; 80048; 80053; 80307; 81003; 82150; 82962; 83690; 83880; 84484; 85025; 87081; 93005; 96374; 96375; 99291; J1815; J2405; S5561

== ENCOUNTER 2019-10-01 01:07 | Emergency (ER) | payer OTHER ==
[~2019-10-01] VITALS: Ht 157.5 cm; Wt 108.9 kg
[~2019-10-01 01:07] MED LIST changes: +ACETAMINOPHEN-1 EAC1 ORAL; +ACETAMINOPHEN500 M3 ORAL; +ATENOLOL25 MG ORAL; +CATAPRES0.1 MG ORAL; +CYMBALTA30 MG ORAL; +GABAPENTIN100 MG ORAL; +LOSARTAN POTASS50 MG ORAL; +NICOTINE1 EAC2 TD; +PANTOPRAZOLE SO40 MG ORAL; +SENNA PLUS TAB1 EAC1 PO; +SENNA8.6 M2 PO; +SIMVASTATIN40 MG ORAL
[2019-10-01 01:17] VITALS: BP 157/131
--- NOTE | 2019-10-01 01:21 | Emergency Room Report ---
History of Present Illness General Chief Complaint: Dyspnea/Respdistress Source: Patient Present Illness HPI This is a 54-year-old female with history of high blood pressure, renal failure on hemodialysis. Her dialysis days are Monday, , Monday. She did get it on Monday. She presents with chief pain shortness of breath. She is scheduled for dialysis at 5 AM. She woke up short of breath. She called 911. EMS that she was hypoxic and respiratory distress. They gave her breathing treatment and put on oxygen and brought her here. She says she felt better now. No fever chills but no nausea no vomiting. No chest pain. Similar symptom in the past. She was just discharged from here less than 2 weeks ago. Allergies: Coded Allergies: No Known Allergies (Unverified , 10/13/13) Patient History Past Medical History: see triage record, old chart reviewed, HTN, CHF, renal disease, dialysis Past Surgical History: other Pertinent Family History: none Social History: Denies: smoking Last Menstrual Period: na Now: No Immunizations: other Reviewed Nursing Documentation: PMH: Agreed; PSxH: Agreed Nursing Documentation-PMH Hx Hypertension: Yes Hx Asthma: Yes Hx COPD: Yes - bronchitis Hx Diabetes: Yes Hx Cancer: No Hx Gastrointestinal Problems: No - kidney failure Hx Dialysis: Yes - M,W,F Hx Neurological Problems: No - SEIZURE, ANXIETY Review of Systems Eye: Denies: eye pain, blurred vision ENT: Denies: ear pain, nose congestion, throat swelling Respiratory: Reports: shortness of breath; Denies: cough Cardiovascular: Denies: chest pain, palpitations Gastrointestinal: Denies: abdominal pain, diarrhea, nausea, vomiting Musculoskeletal: Denies: back pain, joint pain Skin: Denies: rash Neurological: Denies: headache, numbness Endocrine: Denies: increased thirst, increased urine Hematologic/Lymphatic: Denies: easy bruising All Other Systems: negative except mentioned in HPI Physical Exam Vital Signs Date Time Temp Pulse Resp B/P (MAP) Pulse Ox O2 Delivery O2 Flow Rate FiO2 10/01/19 01:09 97.9 90 20 157/131 (140) 98 Room Air Vitals with high blood pressure Sp02 EP Interpretation: reviewed, normal General Appearance: well appearing, no apparent distress, alert, obese Head: normocephalic, atraumatic Eyes: bilateral eye PERRL, bilateral eye EOMI ENT: hearing grossly normal, normal pharynx Neck: full range of motion, supple, no meningismus Respiratory: chest non-tender, normal breath sounds, rales - Slight rales at the bases Cardiovascular #1: regular rate, rhythm, no murmur Gastrointestinal: normal bowel sounds, non tender, no mass, no organomegaly, no bruit, non-distended Musculoskeletal: back normal, normal range of motion, gait/station normal Psychiatric: mood/affect normal Medical Decision Making Diagnostic Impression: Primary Impression: Fluid overload Qualified Codes: E87.70 - Fluid overload, unspecified Additional Impressions: Dyspnea Qualified Codes: R06.03 - Acute respiratory distress Hypertension Qualified Codes: I10 - Essential (primary) hypertension CHF exacerbation Qualified Codes: I50.9 - Heart failure, unspecified ER Course Patient presents with respiratory stress from fluid overloaded. He needs dialysis. Potassium is normal. She diuresed well here. Her BNP is slightly than last time she got admitted here. She is scheduled for dialysis at 5 AM. She felt better after Lasix. Will discharge home so she can get her a ride for dialysis. No evidence of ACS, PE, dissection to name a few. EKG Diagnostic Results Rate: normal Rhythm: NSR ST Segments: no acute changes Rhythm Strip Diag. Results EP Interpretation: yes Rate: 90 Rhythm: NSR, no PVC's, no ectopy Chest X-Ray Diagnostic Results Chest X-Ray Diagnostic Results : Chest X-Ray Ordered: Yes # of Views/Limited/Complete: 1 View Indication: Shortness of Breath EP Interpretation: Yes Interpretation: no consolidation, no effusion, no pneumothorax, other - CM with vasc congestion Impression: Other - chf Electronically Signed by: Carlos Tang MD Last Vital Signs Date Time Temp Pulse Resp B/P (MAP) Pulse Ox O2 Delivery O2 Flow Rate FiO2 10/01/19 01:09 97.9 90 20 157/131 (140) 98 Room Air Status: improved Disposition: HOME, SELF-CARE Condition: Stable Referrals: [facility] (PCP) Additional Instructions: Going to dialysis at 5 AM. Follow-up with your doctor in 2 3 days if not better. Call 911 if symptoms worsen prior to dialysis. Return if symptoms worsen. Carlos Tang MD Oct 01, 2019 01:21
[2019-10-01 01:28] VITALS: BP 162/65
[2019-10-01 01:30] LABS: BASOPHILS % (AUTO) 1.1 % (0.0-2.0); EOSINOPHILS % (AUTO) 2.5 % (0.0-3.0); HEMATOCRIT 33.3 % (37.0-47.0); HEMOGLOBIN 10.7 G/DL (12.0-16.0); LYMPHOCYTES % (AUTO) 30.9 % (20.0-45.0); MEAN CORPUSCULAR VOLUME 92 FL (80-99); MONOCYTES % (AUTO) 3.4 % (1.0-10.0); NEUTROPHILS % (AUTO) 62.1 % (45.0-75.0); PLATELET COUNT 245 K/UL (150-450); RED BLOOD COUNT 3.62 M/UL (4.20-5.40); RED CELL DISTRIBUTION WIDTH 13.9 % (11.6-14.8); WHITE BLOOD COUNT 10.3 K/UL (4.8-10.8)
[2019-10-01] MEDS ORDERED: Nitroglycerin 2% oint pkt TOPIC ONE (01:30)
[2019-10-01 01:41] LABS: ANION GAP 9 mmol/L (5-15); BLOOD UREA NITROGEN 45 mg/dL (7-18); CALCIUM 8.8 MG/DL (8.5-10.1); CARBON DIOXIDE 27 MMOL/L (21-32); CHLORIDE 104 MMOL/L (98-107); POTASSIUM 4.5 MMOL/L (3.5-5.1); SODIUM 139 MMOL/L (136-145)
[2019-10-01 01:57] LABS: APPEARANCE,URINE CLEAR; BILIRUBIN, URINE NEGATIVE (NEGATIVE); COLOR,URINE PALE YELLOW; GLUCOSE, URINE (UA) 2+ (NEGATIVE); KETONES,URINE NEGATIVE (NEGATIVE); LEUKOCYTE ESTERASE ,URINE 1+ (NEGATIVE); NITRITE,URINE NEGATIVE (NEGATIVE); PH,URINE 7 (4.5-8.0); PROTEIN,URINE 3+ (NEGATIVE); UROBILINOGEN,URINE NORMAL MG/DL (0.0-1.0)
[2019-10-01 03:00] VITALS: BP 137/52
--- NOTE | 2019-10-01 16:49 | Diagnostic Imaging Report ---
Indication: Shortness of breath Technique: One view of the chest Comparison: 09/17/2019 Findings: There is bilateral interstitial and airspace edema, somewhat more severe than on the prior study. There may be small bilateral pleural effusions. The heart is enlarged. There is a right subclavian and innominate venous stent again demonstrated. Impression: Bilateral interstitial and airspace edema, more severe than on prior study of 09/17/2019 Mild cardiomegaly
== END 2019-10-01 03:00 | disposition home or self-care (01) ==
LOC: EDUNIT# 01:07 → EDBD 01:07 → EMR 01:17
DX: E87.70 Fluid overload, unspecified (principal); R06.03 Acute respiratory distress; I50.9 Heart failure, unspecified; E66.9 Obesity, unspecified; I13.0 Hypertensive heart and chronic kidney disease with heart failure and stage 1 through stage 4 chronic kidney disease, or unspecified chronic kidney disease; E11.22 Type 2 diabetes mellitus with diabetic chronic kidney disease; N18.9 Chronic kidney disease, unspecified; F41.9 Anxiety disorder, unspecified
CPT/HCPCS: 36415; 71045; 80048; 81003; 83880; 84484; 85025; 93005; 96374; J1940; Z7502; 99284

== ENCOUNTER 2019-12-24 20:37 | Emergency (ER) | payer OTHER ==
[~2019-12-24] VITALS: Ht 157.5 cm; Wt 108.4 kg
[2019-12-24 20:48] VITALS: BP 117/93
--- NOTE | 2019-12-24 20:48 | NUR ---
ED Nurse Note: Pt biba from home CO SOB during exertion. Pt states that after dialysis finished today (old shunt on right arm, new useable shunt on upper left arm), the pt began having trouble berathing and was hypotensive at dialysis center. Pt left dialysis center against medical advice. Pt called 911 d/t increasing SOB at home. Pt states previous hx of COPD, CHF, HTN, kidney failure. Awaiting ERMD at bedside
--- NOTE | 2019-12-24 20:49 | NUR ---
ED Nurse Note: Pt placed on 12L NRB, Spo2 100%, RR 18.
--- NOTE | 2019-12-24 21:12 | NUR ---
ED Nurse Note: ERMD at bedside for inital assessment.
--- NOTE | 2019-12-24 21:17 | Emergency Room Report ---
History of Present Illness General Chief Complaint: Dyspnea/Respdistress Source: Patient Present Illness HPI This a 54-year-old female with a history of renal failure on hemodialysis. Her hemodialysis days are Monday, , and Monday. She finished dialysis today. She presents with complaint of shortness of breath. This occurred this evening after she was smoking cigarette. She got to the point where she had to call 911. They put her on oxygen brought her here. She felt better now. No fever chills but does have cough. No chest pain. Worse with exertion. Better with rest. No swelling. Denies any other complaint. Been here several times for the same thing. Allergies: Coded Allergies: No Known Allergies (Unverified , 10/13/13) Patient History Past Medical History: see triage record, old chart reviewed, HTN, asthma, renal disease, dialysis Past Surgical History: other Pertinent Family History: none Social History: Reports: smoking Now: No Immunizations: other Reviewed Nursing Documentation: PMH: Agreed; PSxH: Agreed Nursing Documentation-PMH Hx Hypertension: Yes Hx Asthma: Yes Hx COPD: Yes - bronchitis Hx Diabetes: Yes Hx Cancer: No Hx Gastrointestinal Problems: No - kidney failure Hx Dialysis: Yes - t//mon Hx Neurological Problems: No - SEIZURE, ANXIETY Review of Systems Eye: Denies: eye pain, blurred vision ENT: Denies: ear pain, nose congestion, throat swelling Respiratory: Reports: cough, shortness of breath Cardiovascular: Denies: chest pain, palpitations Gastrointestinal: Denies: abdominal pain, diarrhea, nausea, vomiting Musculoskeletal: Denies: back pain, joint pain Skin: Denies: rash Neurological: Denies: headache, numbness Endocrine: Denies: increased thirst, increased urine Hematologic/Lymphatic: Denies: easy bruising All Other Systems: negative except mentioned in HPI Physical Exam Vital Signs Date Time Temp Pulse Resp B/P (MAP) Pulse Ox O2 Delivery O2 Flow Rate FiO2 12/24/19 20:38 99.1 97 18 117/93 (101) 99 Non-Rebreather 12.0 Vitals unremarkable Sp02 EP Interpretation: reviewed, normal General Appearance: well appearing, no apparent distress, alert, obese Head: normocephalic, atraumatic Eyes: bilateral eye PERRL, bilateral eye EOMI ENT: hearing grossly normal, normal pharynx Neck: full range of motion, supple, no meningismus Respiratory: chest non-tender, lungs clear, normal breath sounds Cardiovascular #1: regular rate, rhythm, no murmur Gastrointestinal: normal bowel sounds, non tender, no mass, no organomegaly, no bruit, non-distended Musculoskeletal: back normal, normal range of motion, gait/station normal Psychiatric: mood/affect normal Medical Decision Making Diagnostic Impression: Primary Impression: Dyspnea Qualified Codes: R06.02 - Shortness of breath Additional Impression: Asthma exacerbation Qualified Codes: J45.21 - Mild intermittent asthma with (acute) exacerbation ER Course This patient presents with shortness of breath after smoking. This may be secondary to asthma exacerbation. She did get her full 3-1/2 hours of dialysis today. She says she is scheduled for many at dialysis tomorrow because she needed some more fluid taken off. She felt better now. Oxygenation has been normal off of oxygen. No evidence of severe fluid overloaded. No evidence of pneumonia, ACS, PE, dissection telemetry. Will discharge home. EKG Diagnostic Results Rate: normal Rhythm: NSR ST Segments: no acute changes Rhythm Strip Diag. Results EP Interpretation: yes Rate: 95 Rhythm: NSR, no PVC's, no ectopy Chest X-Ray Diagnostic Results Chest X-Ray Diagnostic Results : Chest X-Ray Ordered: Yes # of Views/Limited/Complete: 1 View Indication: Shortness of Breath EP Interpretation: Yes Interpretation: no consolidation, no effusion, no pneumothorax, no acute cardiopulmonary disease Impression: No acute disease Electronically Signed by: Carlos Tang MD Last Vital Signs Date Time Temp Pulse Resp B/P (MAP) Pulse Ox O2 Delivery O2 Flow Rate FiO2 12/24/19 20:38 99.1 97 18 117/93 (101) 99 Non-Rebreather 12.0 Status: improved Disposition: HOME, SELF-CARE Condition: Stable Scripts Prednisone* (PREDNISONE*) 20 Mg Tablet 40 MG ORAL DAILY, #8 TAB Prov: Carlos Tang MD 12/24/19 Referrals: [facility] ([facility]P) Patient Instructions: Shortness of Breath, Whqj-[id number] Additional Instructions: Continue with dialysis tomorrow. Follow-up with your doctor in 7 days. Return if symptoms worsen. Stop smoking. Carlos Tang MD Dec 24, 2019 21:17
--- NOTE | 2019-12-24 21:30 | NUR ---
ED Nurse Note: All bloodwork sent to lab.
--- NOTE | 2019-12-24 21:32 | NUR ---
ED Nurse Note: xray at bedside
--- NOTE | 2019-12-24 21:50 | NUR ---
ED Nurse Note: UA sample sent to lab
[2019-12-24 21:52] LABS: APPEARANCE,URINE CLOUDY; BILIRUBIN, URINE NEGATIVE (NEGATIVE); COLOR,URINE AMBER; GLUCOSE, URINE (UA) NEGATIVE (NEGATIVE); KETONES,URINE NEGATIVE (NEGATIVE); LEUKOCYTE ESTERASE ,URINE 2+ (NEGATIVE); NITRITE,URINE NEGATIVE (NEGATIVE); PH,URINE 8 (4.5-8.0); PROTEIN,URINE 4+ (NEGATIVE); UROBILINOGEN,URINE NORMAL MG/DL (0.0-1.0)
[2019-12-24 21:58] LABS: ANION GAP 8 mmol/L (5-15); BLOOD UREA NITROGEN 21 mg/dL (7-18); CALCIUM 9.3 MG/DL (8.5-10.1); CARBON DIOXIDE 32 MMOL/L (21-32); CHLORIDE 101 MMOL/L (98-107); CREATININE 4.2 MG/DL (0.55-1.30); POTASSIUM 5.8 MMOL/L (3.5-5.1); SODIUM 141 MMOL/L (136-145)
[2019-12-24 22:02] LABS: BASOPHILS % (AUTO) 1.2 % (0.0-2.0); EOSINOPHILS % (AUTO) 2.7 % (0.0-3.0); HEMATOCRIT 40.4 % (37.0-47.0); HEMOGLOBIN 12.1 G/DL (12.0-16.0); LYMPHOCYTES % (AUTO) 34.2 % (20.0-45.0); MEAN CORPUSCULAR VOLUME 97 FL (80-99); MONOCYTES % (AUTO) 5.2 % (1.0-10.0); NEUTROPHILS % (AUTO) 56.7 % (45.0-75.0); PLATELET COUNT 281 K/UL (150-450); RED BLOOD COUNT 4.16 M/UL (4.20-5.40)
[2019-12-24 22:03] LABS: ALANINE AMINOTRANSFERASE 11 U/L (12-78); ALBUMIN 3.6 G/DL (3.4-5.0); ALBUMIN/GLOBULIN RATIO 0.7 (1.0-2.7); ALKALINE PHOSPHATASE 451 U/L (46-116); ASPARTATE AMINO TRANSFERASE 13 U/L (15-37); BILIRUBIN,TOTAL 0.2 MG/DL (0.2-1.0)
[2019-12-24 22:10] VITALS: BP 119/73
[2019-12-24] MEDS ORDERED: PREDNISONE20 MG ORAL (22:20)
[2019-12-24 22:45] VITALS: BP 119/73
--- NOTE | 2019-12-24 22:55 | NUR ---
ER DISCHARGE NOTE: Patient is cleared to be discharged home per ERMD, pt is aox4, on room air, with stable vital signs. pt was given dc and prescription instructions, pt was able to verbalize understanding, pt id band and iv site removed without complications. pt is able to ambulate with steady gait. pt took all belongings.
--- NOTE | 2019-12-25 15:57 | Diagnostic Imaging Report ---
Indication: There is a broad Technique: One view of the chest Comparison: 10/01/2019 Findings: Body habitus limits evaluation. The heart is upper limits of normal in size. Basilar atelectatic changes are noted. There is questionable hazy opacity at both lung bases, although this is probably an artifact of overlapping soft tissue. Impression: Bibasilar atelectasis. Cannot rule out hazy bilateral basilar infiltrates as well. Correlate with clinical findings
== END 2019-12-24 22:45 | disposition home or self-care (01) ==
LOC: EDBD 20:37 → EMR 21:07
DX: R06.00 Dyspnea, unspecified (principal); J45.21 Mild intermittent asthma with (acute) exacerbation; E66.9 Obesity, unspecified; F17.200 Nicotine dependence, unspecified, uncomplicated; G40.909 Epilepsy, unspecified, not intractable, without status epilepticus; F41.9 Anxiety disorder, unspecified; I12.9 Hypertensive chronic kidney disease with stage 1 through stage 4 chronic kidney disease, or unspecified chronic kidney disease; E11.22 Type 2 diabetes mellitus with diabetic chronic kidney disease; N18.9 Chronic kidney disease, unspecified
CPT/HCPCS: 36415; 71045; 80053; 80307; 81003; 84484; 85025; 87086; 93005; 96374; J1940; Z7502; 99284

== ENCOUNTER 2020-08-27 12:07 | Emergency (ER) | payer OTHER ==
[~2020-08-27] VITALS: Ht 157.5 cm; Wt 108.9 kg
[2020-08-27] MEDS ORDERED: Aspirin Baby 81mg ORAL ONE (13:00)
--- NOTE | 2020-08-27 13:02 | Emergency Room Report ---
History of Present Illness General Chief Complaint: Chest Pain Source: Patient Present Illness HPI This patient has a history of end-stage renal disease, diabetes, hypertension and just finished dialysis today. She states that for the past 3 days she has noted intermittent chest pressure and pain in the left part of her chest. She also has had lower abdominal pain. She does make urine but denies dysuria or hematuria. She denies fever or chills. She denies nausea or vomiting. She does have a history of COPD and continues to smoke tobacco. She does use inhalers at home. She has no other complaints. Allergies: Coded Allergies: No Known Allergies (Unverified , 10/13/13) COVID-19 Screening Contact w/high risk pt: No Experienced COVID-19 symptoms?: No COVID-19 Testing performed BLAST SETTER: No Patient History Past Medical History: see triage record, DM, HTN, [place], CAD, COPD, GERD, renal disease, dialysis Social History: Reports: smoking Now: No Reviewed Nursing Documentation: PMH: Agreed; PSxH: Agreed Nursing Documentation-PMH Hx Hypertension: Yes Hx Asthma: Yes Hx COPD: Yes - bronchitis Hx Diabetes: Yes Hx Cancer: No Hx Gastrointestinal Problems: No - kidney failure Hx Dialysis: Yes - t/thurs/sat Hx Neurological Problems: No - SEIZURE, ANXIETY Review of Systems All Other Systems: negative except mentioned in HPI Physical Exam Vital Signs Date Time Temp Pulse Resp B/P (MAP) Pulse Ox O2 Delivery O2 Flow Rate FiO2 08/27/20 12:15 98.8 105 19 115/67 (83) 94 Room Air Sp02 EP Interpretation: reviewed, normal General Appearance: no apparent distress, alert, GCS 15, non-toxic, obese Head: normocephalic, atraumatic Eyes: bilateral eye normal inspection, bilateral eye PERRL ENT: hearing grossly normal, normal pharynx, no angioedema, normal voice Neck: full range of motion, supple/symm/no masses Respiratory: chest non-tender, lungs clear, normal breath sounds, no respiratory distress, no retraction, no accessory muscle use, speaking full sentences Cardiovascular #1: regular rate, rhythm, no edema Gastrointestinal: normal bowel sounds, non tender, soft, non-distended, no guarding, no rebound Rectal: deferred Musculoskeletal: back normal, normal range of motion, non-tender Neurologic: alert, motor strength/tone normal, oriented x3, sensory intact, responsive, speech normal Psychiatric: judgement/insight normal, memory normal, mood/affect normal, no suicidal/homicidal ideation Skin: no rash, normal color Medical Decision Making Diagnostic Impression: Primary Impression: UTI (urinary tract infection) Additional Impression: Chest pain ER Course This patient is found to have a urinary tract infection. I did work-up the patient's chest pain and there is no evidence of KS or acute coronary syndrome based on laboratory work-up and EKG. The patient's lungs are clear and so I do not suspect a COPD exacerbation at this time. The patient was well-appearing and nontoxic and chest pain-free in the emergency department. I did give the patient a dose of IV Rocephin. The patient does have renal disease and is on dialysis, so I will decrease the dose of the Keflex. The patient is given close return precautions and follow-up instructions. Laboratory Tests Test 08/27/20 12:50 08/27/20 13:20 White Blood Count 10.2 K/UL (4.8-10.8) Red Blood Count 3.75 M/UL (4.20-5.40) L Hemoglobin 11.3 G/DL (12.0-16.0) L Hematocrit 36.5 % (37.0-47.0) L Mean Corpuscular Volume 97 FL (80-99) Mean Corpuscular Hemoglobin 30.1 PG (27.0-31.0) Mean Corpuscular Hemoglobin Concent 31.0 G/DL (32.0-36.0) L Red Cell Distribution Width 16.1 % (11.6-14.8) H Platelet Count 256 K/UL (150-450) Mean Platelet Volume 7.8 FL (6.5-10.1) Neutrophils (%) (Auto) 68.9 % (45.0-75.0) Lymphocytes (%) (Auto) 22.3 % (20.0-45.0) Monocytes (%) (Auto) 5.5 % (1.0-10.0) Eosinophils (%) (Auto) 1.9 % (0.0-3.0) Basophils (%) (Auto) 1.4 % (0.0-2.0) Sodium Level 141 MMOL/L (136-145) Potassium Level 3.5 MMOL/L (3.5-5.1) Chloride Level 102 MMOL/L (98-107) Carbon Dioxide Level 32 MMOL/L (21-32) Anion Gap 8 mmol/L (5-15) Blood Urea Nitrogen 7 mg/dL (7-18) Creatinine 3.1 MG/DL (0.55-1.30) H Estimated Glomerular Filtration Rate 18.8 mL/min (>60) Glucose Level 232 MG/DL (74-106) H Calcium Level 8.6 MG/DL (8.5-10.1) Total Bilirubin 0.3 MG/DL (0.2-1.0) Aspartate Amino Transferase (AST) 15 U/L (15-37) Alanine Aminotransferase (ALT) 10 U/L (12-78) L Alkaline Phosphatase 364 U/L (46-116) H Troponin I 0.004 ng/mL (0.000-0.056) Total Protein 8.2 G/DL (6.4-8.2) Albumin 3.3 G/DL (3.4-5.0) L Globulin 4.9 g/dL Albumin/Globulin Ratio 0.7 (1.0-2.7) L Urine Color Yellow Urine Appearance Clear Urine pH 5 (4.5-8.0) Urine Specific Widener 1.020 (1.005-1.035) Urine Protein 4+ (NEGATIVE) H Urine Glucose (UA) Negative (NEGATIVE) Urine Ketones 1+ (NEGATIVE) H Urine Blood 1+ (NEGATIVE) H Urine Nitrite Positive (NEGATIVE) H Urine Bilirubin Negative (NEGATIVE) Urine Urobilinogen 1 MG/DL (0.0-1.0) H Urine Leukocyte Esterase 3+ (NEGATIVE) H Urine RBC 0-2 /HPF (0 - 2) Urine WBC 10-15 /HPF (0 - 2) H Urine Squamous Epithelial Cells Few /LPF (NONE/OCC) Urine Bacteria Moderate /HPF (NONE) H Urine Opiates Screen Negative (NEGATIVE) Urine Barbiturates Screen Negative (NEGATIVE) Phencyclidine (PCP) Screen Negative (NEGATIVE) Urine Amphetamines Screen Negative (NEGATIVE) Urine Benzodiazepines Screen Negative (NEGATIVE) Urine Cocaine Screen Negative (NEGATIVE) Urine Marijuana (THC) Screen Positive (NEGATIVE) H EKG Diagnostic Results Rate: normal Rhythm: NSR ST Segments: no acute changes Other Impression SR, occ PVC, prolonged Qtc Rhythm Strip Diag. Results EP Interpretation: yes Rate: 90's Rhythm: NSR, no PVC's, no ectopy, other Chest X-Ray Diagnostic Results Chest X-Ray Diagnostic Results : Chest X-Ray Ordered: Yes # of Views/Limited/Complete: 1 View Indication: Chest Pain EP Interpretation: Yes Interpretation: no consolidation, no effusion, no pneumothorax, no acute cardiopulmonary disease Impression: No acute disease Electronically Signed by: Africa Preston DO Last Vital Signs Date Time Temp Pulse Resp B/P (MAP) Pulse Ox O2 Delivery O2 Flow Rate FiO2 08/27/20 12:15 98.8 105 19 115/67 (83) 94 Room Air Status: improved Disposition: HOME, SELF-CARE Condition: Improved Africa Preston DO Aug 27, 2020 13:02
[2020-08-27 13:12] LABS: BASOPHILS % (AUTO) 1.4 % (0.0-2.0); EOSINOPHILS % (AUTO) 1.9 % (0.0-3.0); HEMATOCRIT 36.5 % (37.0-47.0); HEMOGLOBIN 11.3 G/DL (12.0-16.0); LYMPHOCYTES % (AUTO) 22.3 % (20.0-45.0); MEAN CORPUSCULAR VOLUME 97 FL (80-99); MONOCYTES % (AUTO) 5.5 % (1.0-10.0); NEUTROPHILS % (AUTO) 68.9 % (45.0-75.0); PLATELET COUNT 256 K/UL (150-450); RED BLOOD COUNT 3.75 M/UL (4.20-5.40); RED CELL DISTRIBUTION WIDTH 16.1 % (11.6-14.8); WHITE BLOOD COUNT 10.2 K/UL (4.8-10.8)
[2020-08-27 13:17] LABS: CALCIUM 8.6 MG/DL (8.5-10.1); CREATININE 3.1 MG/DL (0.55-1.30); POTASSIUM 3.5 MMOL/L (3.5-5.1)
[2020-08-27 13:26] VITALS: BP 115/67
--- NOTE | 2020-08-27 13:28 | NUR ---
ED Nurse Note:pt. came from home with c/o epigastric pain, she just had dialysis today, AV shunt is on the left upper arm, skin is intact, VSS, blood and urine sent to labs
[2020-08-27 13:34] LABS: ALBUMIN 3.3 G/DL (3.4-5.0); ALBUMIN/GLOBULIN RATIO 0.7 (1.0-2.7); BILIRUBIN,TOTAL 0.3 MG/DL (0.2-1.0)
[2020-08-27 13:37] LABS: APPEARANCE,URINE CLEAR; BILIRUBIN, URINE NEGATIVE (NEGATIVE); GLUCOSE, URINE (UA) NEGATIVE (NEGATIVE); KETONES,URINE 1+ (NEGATIVE); LEUKOCYTE ESTERASE ,URINE 3+ (NEGATIVE); NITRITE,URINE POSITIVE (NEGATIVE); PH,URINE 5 (4.5-8.0); PROTEIN,URINE 4+ (NEGATIVE); UROBILINOGEN,URINE 1 MG/DL (0.0-1.0)
[2020-08-27 13:44] LABS: COLOR,URINE YELLOW
[2020-08-27] MEDS ORDERED: cefTRIAXone 1 GM in NS 55 ML IVPB ONE (14:45)
[2020-08-27] MEDS ORDERED: CEPHALEXIN500 MG ORAL (15:03)
[2020-08-27 15:17] VITALS: BP 128/79
[2020-08-27 15:18] VITALS: BP 128/79
--- NOTE | 2020-08-27 15:19 | Diagnostic Imaging Report ---
Indication: Chest pain Technique: One view of the chest Comparison: 12/24/2019 Findings: Heart size is upper limits of normal. There is mild bilateral interstitial and airspace edema, extent which is similar to the previous study. Right subclavian/innominate venous stent is again demonstrated. Impression: Mild interstitial and airspace edema, versus infiltrates. Correlate with clinical findings
--- NOTE | 2020-08-27 15:19 | NUR ---
ED Nurse Note: Pt cleared by health care Provider for discharge. DC instructions/prescription was given and explained to pt and verbalized understanding of teachings. All medical deviecs such as ID band removed. Pt is AAO x4, ambulatory and left with all personal belongings.
== END 2020-08-27 15:28 | disposition home or self-care (01) ==
LOC: EMR 12:59
DX: N39.0 Urinary tract infection, site not specified (principal); R07.9 Chest pain, unspecified; E11.22 Type 2 diabetes mellitus with diabetic chronic kidney disease; I12.0 Hypertensive chronic kidney disease with stage 5 chronic kidney disease or end stage renal disease; N18.6 End stage renal disease; G40.909 Epilepsy, unspecified, not intractable, without status epilepticus; J44.9 Chronic obstructive pulmonary disease, unspecified; F17.200 Nicotine dependence, unspecified, uncomplicated; Z99.2 Dependence on renal dialysis; Z79.4 Long term (current) use of insulin; Z79.899 Other long term (current) drug therapy; Z79.82 Long term (current) use of aspirin
CPT/HCPCS: 36415; 71045; 80053; 80307; 81003; 84484; 85025; 87086; 93005; 96365; J0696; Z7502; 99284

== ENCOUNTER 2020-09-16 12:53 | Emergency (ER) | payer OTHER ==
[~2020-09-16] VITALS: Ht 157.5 cm; Wt 108.4 kg
[~2020-09-16 12:53] MED LIST changes: +CEPHALEXIN500 MG ORAL
[2020-09-16 13:05] VITALS: BP 117/74
[2020-09-16] MEDS ORDERED: Omnipaque 350 100ml vial INJ PRN (13:15)
--- NOTE | 2020-09-16 13:49 | Emergency Room Report ---
History of Present Illness General Chief Complaint: Headache Source: Patient Present Illness HPI 55-year-old female presents to the emergency department complaining of 10 out of 10 severity headache behind the eyes that is now progressed to the back of her head as well and has become more painful in nature x1 month. Patient reports having headaches for over 1 year. She denies sudden onset of her ONEAL. Patient states that once her headaches began getting worse she began taking Excedrin Migraine and BC powders regularly however she states the last week or so her medications are not helping at all. Patient reports she was seen by her prefabricated houses trimmer who was concerned for glaucoma and retinal hemorrhages. The patient presents with pictures showing jimenez spots/ hemorrhages. Patient has lo ngstanding history of poorly controlled diabetes she is insulin-dependent. She also has a history of high blood pressure hyperlipidemia and congestive heart failure. Patient reports she also is on dialysis and she goes 3 times a week her last dialysis was performed yesterday. Patient reports having a shunt in the left arm. Patient reports that her blood pressure is usually on the low side and they have difficulty keeping it up especially after dialysis. Patient states that she has been taken off of her high blood pressure medications. She reports nausea and vomiting and estimates frequency of about 3-4 times per week. She denies abdominal pain, neck pain/stiffness, fevers or chills. Patient reports that she was seeing prefabricated houses trimmer for poor vision which has continued to decline over years. Patient states most recent visit to prefabricated houses trimmer was for new eyeglasses. She described that for several months she has been having difficulty determining depth while walking and she is fallen multiple times. She denies floaters or loss of vision/black spots. Patient reports that her headache is well progressed where she feels as though she was "bashed in the back of the head "whereas before was primarily just behind the eyes. She denies eye pain or redness. She denies photophobia. She reports having floaters for over a year that are not new symptoms. She denies nasal congestion or rhi norrhea. She denies any other aggravating or relieving factors. She reports she takes aspirin daily and denies taking any other blood thinning medications. She denies any recent spinal procedures/lumbar punctures. She reports migraines does run Allergies: Coded Allergies: No Known Allergies (Unverified , 10/13/13) COVID-19 Screening Contact w/high risk pt: No Experienced COVID-19 symptoms?: No COVID-19 Testing performed [employer]: No - first week of Nov COVID-19 Screening: Negative COVID-19 COVID-19 Testing Source: clinic Patient History Past Medical History: see triage record Past Surgical History: none Pertinent Family History: none Reviewed Nursing Documentation: PMH: Agreed; PSxH: Agreed Nursing Documentation-PMH Hx Hypertension: Yes Hx Asthma: Yes Hx COPD: Yes - bronchitis Hx Diabetes: Yes Hx Cancer: No Hx Gastrointestinal Problems: No - kidney failure Hx Dialysis: Yes - t/thurs/sat Hx Neurological Problems: No - SEIZURE, ANXIETY Review of Systems All Other Systems: negative except mentioned in HPI Physical Exam Vital Signs Date Time Temp Pulse Resp B/P (MAP) Pulse Ox O2 Delivery O2 Flow Rate FiO2 09/16/20 12:55 98.2 95 19 132/68 (89) 98 Room Air Sp02 EP Interpretation: reviewed, normal General Appearance: no apparent distress, alert, GCS 15, non-toxic, Chronically Ill Head: normocephalic, atraumatic Eyes: bilateral eye normal inspection, bilateral eye PERRL, bilateral eye EOMI, bilateral eye visual acuity, bilateral eye other - no photophobia. opthalmoscope exam defered. ENT: hearing grossly normal, normal voice Neck: full range of motion, no meningismus, no bony tend Respiratory: chest non-tender, lungs clear, normal breath sounds, no respiratory distress, no wheezing, speaking full sentences Cardiovascular #1: regular rate, rhythm, no edema, normal capillary refill Cardiovascular #2: 2+ radial (R), 2+ radial (L) - Pt. has shunt in left brachial area that has a palpable thrill. Gastrointestinal: non tender, soft Genitourinary: normal inspection, no CVA tenderness Musculoskeletal: back normal, normal range of motion, gait/station normal, non- tender Neurologic: alert, motor strength/tone normal, oriented x3, sensory intact, responsive, speech normal Psychiatric: judgement/insight normal Skin: no rash, normal color Medical Decision Making PA Attestation Dr. Hunt Is my supervising Physician whom patient management has been discussed with. Diagnostic Impression: Primary Impression: Frequent headaches Additional Impressions: Retinal hemorrhage Qualified Codes: H35.60 - Retinal hemorrhage, unspecified eye ESRD on hemodialysis Diabetes Qualified Codes: E13.319 - Other specified diabetes mellitus with unspecified diabetic retinopathy without macular edema Hypertension Qualified Codes: I10 - Essential (primary) hypertension Congestive heart failure Qualified Codes: I50.9 - Heart failure, unspecified ER Course 55-year-old female presents to the emergency department complaining of 10 out of 10 severity headache behind the eyes that is now progressed to the back of her head as well and has become more painful in nature x1 month. Patient reports having headaches for over 1 year. Patient states that once her headaches began getting worse she began taking Excedrin Migraine and BC powders regularly however she states the last week or so her medications are not helping at all. Patient reports she was seen by her prefabricated houses trimmer who was concerned for glaucoma and bleeding on the optic disks. The patient presents with pictures showing optic disc hemorrhages. Patient has longstanding history of poorly controlled diabetes she is insulin-dependent. She also has a history of high blood pressure hyperlipidemia and congestive heart failure. Patient reports she also is on dialysis and she goes 3 times a week her last dialysis was performed yesterday. Patient reports having a shunt in the left arm. Patient reports that her blood pressure is usually on the low side and they have difficulty keeping it up especially after dialysis. Patient states that she has been taken off of her high blood pressure medications. She reports nausea and vomiting and estimates frequency of about 3-4 times per week. She denies abdominal pain, neck pain/stiffness, fevers or chills. She denies dizziness, CP or palpitations. Patient reports that she was seeing prefabricated houses trimmer primarily for visual changes. Patient states for several months she has been having difficulty determining depth while walking and she is fallen multiple times. She denies floaters or loss of vision/black spots. Patient reports that her headache is well progressed where she feels as though she was "bashed in the back of the head "whereas before was primarily just behind the eyes. She denies nasal congestion or rhinorrhea. She denies any other aggravating or relieving factors. She reports she takes aspirin daily and denies taking any other blood thinning medications. Ddx considered but are not limited to migraine, SAH, Pseudomotor Cerebri,, Mass lesion, Cluster ONEAL, Tension ONEAL, Post lumbar puncture ONEAL, elevated resistance of the central retinal vein, diabetic retinopathy, diabetic microvascular disease, leukemia, optic disc drusen, lupus, secondary to use of antiplatelet agent. Vital signs: are WNL, pt. is afebrile H&PE are most consistent with migraine headache ORDERS: - CBC: chronic anemia -CMP: Cr 5.8 alk phos 449 - PT/PTT: 11.2/ 1.0 -UA: Most indicative of contamination: presence of equal amounts of bacteria and squamous cells, no elevation in inflammatory markers, nitrite negative.----Discussed these results with patient and collaborative decision to await reflex culture before taking antibiotics as patient is not having any urinary symptoms. -CT Brain w. Contrast ( CTA brain) ED INTERVENTIONS: - Tylenol 1g PO DISCHARGE: At this time pt. is stable for d/c to home. Will provide printed patient care instructions, and any necessary prescriptions. Care plan and follow up instructions have been discussed with the patient prior to discharge. Labs Test 09/16/20 13:50 White Blood Count 9.9 K/UL (4.8-10.8) Red Blood Count 3.84 M/UL (4.20-5.40) Hemoglobin 11.4 G/DL (12.0-16.0) Hematocrit 36.9 % (37.0-47.0) Mean Corpuscular Volume 96 FL (80-99) Mean Corpuscular Hemoglobin 29.8 PG (27.0-31.0) Mean Corpuscular Hemoglobin Concent 30.9 G/DL (32.0-36.0) Red Cell Distribution Width 16.5 % (11.6-14.8) Platelet Count 252 K/UL (150-450) Mean Platelet Volume 8.4 FL (6.5-10.1) Neutrophils (%) (Auto) 61.8 % (45.0-75.0) Lymphocytes (%) (Auto) 28.1 % (20.0-45.0) Monocytes (%) (Auto) 6.5 % (1.0-10.0) Eosinophils (%) (Auto) 1.8 % (0.0-3.0) Basophils (%) (Auto) 1.8 % (0.0-2.0) Prothrombin Time 11.2 SEC (9.30-11.50) Prothromb Time International Ratio 1.0 (0.9-1.1) Activated Partial Thromboplast Time 29 SEC (23-33) Urine Color Bria Urine Appearance Slightly cloudy Urine pH 8 (4.5-8.0) Urine Specific [place] 1.010 (1.005-1.035) Urine Protein 3+ (NEGATIVE) Urine Glucose (UA) Negative (NEGATIVE) Urine Ketones Negative (NEGATIVE) Urine Blood 1+ (NEGATIVE) Urine Nitrite Negative (NEGATIVE) Urine Bilirubin Negative (NEGATIVE) Urine Ictotest Negative (NEGATIVE) Urine Urobilinogen Normal MG/DL (0.0-1.0) Urine Leukocyte Esterase 1+ (NEGATIVE) Urine RBC 2-4 /HPF (0 - 2) Urine WBC 5-10 /HPF (0 - 2) Urine Squamous Epithelial Cells Moderate /LPF (NONE/OCC) Urine Bacteria Few /HPF (NONE) Sodium Level 140 MMOL/L (136-145) Potassium Level 4.1 MMOL/L (3.5-5.1) Chloride Level 99 MMOL/L (98-107) Carbon Dioxide Level 32 MMOL/L (21-32) Anion Gap 10 mmol/L (5-15) Blood Urea Nitrogen 37 mg/dL (7-18) Creatinine 5.8 MG/DL (0.55-1.30) Estimat Glomerular Filtration Rate 9.1 mL/min (>60) Glucose Level 222 MG/DL (74-106) Calcium Level 8.1 MG/DL (8.5-10.1) Total Bilirubin 0.3 MG/DL (0.2-1.0) Aspartate Amino Transf (AST/SGOT) 16 U/L (15-37) Alanine Aminotransferase (ALT/SGPT) 11 U/L (12-78) Alkaline Phosphatase 449 U/L (46-116) Total Protein 8.1 G/DL (6.4-8.2) Albumin 3.7 G/DL (3.4-5.0) Globulin 4.4 g/dL Albumin/Globulin Ratio 0.8 (1.0-2.7) CT/MRI/US Diagnostic Results CT/MRI/US Diagnostic Results : Imaging Test Ordered: CT Brain with contrast Impression " Impression: 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 This does not conform to the reported typical anatomy of dorsal ophthalmic artery variant; the description of that anatomy described common origins of the ophthalmic and anterior cerebral arteries. In this case, the anterior cerebral artery origins are clearly separate from the ophthalmic artery origins. The significance, if any, of these findings in relation to the patient's symptoms is uncertain Other variant [place] of [place] anatomy, as described, including large bilateral superior communicating arteries but patent P1 segments No evidence of aneurysm or vascular malformation No evidence of acute intracranial bleed ." --Per official radiology report- Please see report for specific details. Last Vital Signs Date Time Temp Pulse Resp B/P (MAP) Pulse Ox O2 Delivery O2 Flow Rate FiO2 09/16/20 12:55 98.2 95 19 132/68 (89) 98 Room Air Status: unchanged Disposition: HOME, SELF-CARE Condition: Stable Scripts Acetaminophen* (TYLENOL EXTRA STRENGTH*) 500 Mg Tablet 500 MG ORAL Q6H, #30 TAB 0 Refills Prov: Milena Blue 09/16/20 Referrals: Rajesh Louie. [facility] Patient Instructions: Diabetic Retinopathy, General Headache Without Cause, [id number] Additional Instructions: Take medications as directed. Follow up with a Rechecker in 3 days, even if your symptoms have resolved. Also suggest Neurologist evaluation for persistent Headaches. --Please review list of primary care clinics, if you do not already have a primary care provider Return sooner to ED if new symptoms occur, or current symptoms become worse. - Please note that this Emergency Department Report was dictated using [employer] director technology software, occasionally this can lead to erroneous entry secondary to interpretation by the dictation equipment. Milena Blue Sep 16, 2020 13:49
--- NOTE | 2020-09-16 13:52 | NUR ---
ED Nurse Note: Pt walked in from home. States that she has had a head ache for a year but that it was worse today. She also states that she went to the opthamologist Addendum: 09/16/20 at 1408 by ARSENIO Continue: She went to the opthamologist yesterday and they said that she had "bleeding behind her eyes" and that she needs to report to the ER. she is resting comfortably, breathing isunlabored, no signs of distress, labs sent. She states she went to dialysis yesterday. Vitals stable as documented.
[2020-09-16 14:28] LABS: BASOPHILS % (AUTO) 1.8 % (0.0-2.0); EOSINOPHILS % (AUTO) 1.8 % (0.0-3.0); HEMATOCRIT 36.9 % (37.0-47.0); HEMOGLOBIN 11.4 G/DL (12.0-16.0); LYMPHOCYTES % (AUTO) 28.1 % (20.0-45.0); MEAN CORPUSCULAR VOLUME 96 FL (80-99); MONOCYTES % (AUTO) 6.5 % (1.0-10.0); NEUTROPHILS % (AUTO) 61.8 % (45.0-75.0); PLATELET COUNT 252 K/UL (150-450); RED BLOOD COUNT 3.84 M/UL (4.20-5.40); RED CELL DISTRIBUTION WIDTH 16.5 % (11.6-14.8); WHITE BLOOD COUNT 9.9 K/UL (4.8-10.8)
[2020-09-16 14:51] LABS: CALCIUM 8.1 MG/DL (8.5-10.1); CREATININE 5.8 MG/DL (0.55-1.30); POTASSIUM 4.1 MMOL/L (3.5-5.1)
[2020-09-16 14:56] LABS: ALBUMIN 3.7 G/DL (3.4-5.0); ALBUMIN/GLOBULIN RATIO 0.8 (1.0-2.7); BILIRUBIN,TOTAL 0.3 MG/DL (0.2-1.0)
[2020-09-16] MEDS ORDERED: Acetaminophen 500mg (ES) tab ORAL ONE (15:00)
[2020-09-16 15:20] VITALS: BP 121/72
[2020-09-16 16:28] LABS: BILIRUBIN, URINE NEGATIVE (NEGATIVE); COLOR,URINE AMBER; GLUCOSE, URINE (UA) NEGATIVE (NEGATIVE); KETONES,URINE NEGATIVE (NEGATIVE); LEUKOCYTE ESTERASE ,URINE 1+ (NEGATIVE); NITRITE,URINE NEGATIVE (NEGATIVE); PH,URINE 8 (4.5-8.0); PROTEIN,URINE 3+ (NEGATIVE); UROBILINOGEN,URINE NORMAL MG/DL (0.0-1.0)
--- NOTE | 2020-09-16 16:31 | Diagnostic Imaging Report ---
Indication: Headache, bleeding behind the optic disc Technique: Precontrast spiral acquisitions obtained through the brain. IV administration nonionic contrast. Arterial and delayed phase spiral acquisitions obtained through the brain. Multiplanar 3-D reconstructions were generated, 3-D reconstructions on the local workstation. Total dose length product 2880 mGycm. CTDIvol(s) 53, 5, 59, 53, 53 mGy. Radiation dose was minimized using automated exposure control Comparison: none Findings: No acute intercranial hemorrhage or edema, mass effect, nor midline shift. Normal vee-white differentiation. Normal size ventricles and extra axial CSF spaces. The mastoids are clear. Visualized orbits and sinuses are unremarkable. Patent nonstenotic bilateral distal internal carotid arteries. There is very unusual anatomy of the anterior cerebral arteries. Both A1 segments originate off of the most anterior aspect of the carotid siphons, both appearing to originate just proximal to the ophthalmic artery origin. There is questionably a patent anterior communicating artery. No evidence of associated aneurysm. The origins of both ophthalmic arteries are clearly separate from the anterior cerebral artery origins. The internal carotid arteries are normal in caliber bilaterally, terminating as large bilateral posterior communicating arteries and bilateral patent nonstenotic middle cerebral arteries and branches. Small caliber codominant bilateral intracranial vertebral arteries. Patent bilateral PICAs. Vessel seen coursing posterior to the basilar artery most likely represents a vein. The basilar artery is small in caliber but nonstenotic. Patent bilateral superior cerebellar arteries. Bilateral P1 segments are patent but small, predominantly supply to the posterior cerebral arteries via large caliber posterior communicating arteries No evidence of aneurysm or vascular malformation. The cerebral veins and dural sinuses are patent. Delayed phase images demonstrate no unusual contrast enhancement. The optic globes are unremarkable on all phases. 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 This does not conform to the reported typical anatomy of dorsal ophthalmic artery variant; the description of that anatomy described common origins of the ophthalmic and anterior cerebral arteries. In this case, the anterior cerebral artery origins are clearly separate from the ophthalmic artery origins. The significance, if any, of these findings in relation to the patient's symptoms is uncertain Other variant [place] of [place] anatomy, as described, including large bilateral superior communicating arteries but patent P1 segments No evidence of aneurysm or vascular malformation No evidence of acute intracranial bleed The CT scanner at [facility] is accredited by the [employer] and the scans are performed using protocols designed to limit radiation exposure to as low as reasonably achievable to attain images of sufficient resolution adequate for diagnostic evaluation.
[2020-09-16 16:38] LABS: APPEARANCE,URINE SLIGHTLY CLOUDY
[2020-09-16] MEDS ORDERED: TYLENOL EXTRA500 MG ORAL (17:05)
[2020-09-16 17:15] VITALS: BP 114/68
--- NOTE | 2020-09-16 17:15 | NUR ---
ER DISCHARGE NOTE: Patient is cleared to be discharged per ERMD, pt is aox4, on room air, with stable vital signs. pt was given dc and prescription instructions and was able to verbalize understanding, pt id band and iv site removed without complications. pt is able to ambulate with steady gait using cane. pt took all belongings.
== END 2020-09-16 17:15 | disposition home or self-care (01) ==
LOC: EMR 13:30
DX: R51.9 Headache, unspecified (principal); H35.60 Retinal hemorrhage, unspecified eye; E11.22 Type 2 diabetes mellitus with diabetic chronic kidney disease; I13.11 Hypertensive heart and chronic kidney disease without heart failure, with stage 5 chronic kidney disease, or end stage renal disease; N18.6 End stage renal disease; J44.9 Chronic obstructive pulmonary disease, unspecified; Z99.2 Dependence on renal dialysis; Z79.4 Long term (current) use of insulin
CPT/HCPCS: 36415; 70496; 80053; 81003; 85025; 85610; 85730; Q9967; Z7502; 99284

== ENCOUNTER 2020-11-15 09:33 | Emergency (ER) | payer OTHER ==
[~2020-11-15] VITALS: Ht 162.6 cm; Wt 90.7 kg
[~2020-11-15 09:33] MED LIST changes: +TYLENOL EXTRA500 MG ORAL
--- NOTE | 2020-11-15 09:56 | Emergency Room Report ---
History of Present Illness General Chief Complaint: Abdominal Pain Source: Patient Present Illness HPI Patient presents with chief complaint of nausea vomiting and diarrhea. She says this is been going on for 3 days. She is unable to keep down any solid food recently. Denies any blood in the diarrhea. She denies fevers or chills. Her last dialysis was Monday. She had extended time because she is had dyspnea. With minimal exertion she's had significant dyspnea. She was also recently started on Robitussin-DM for nonproductive cough. She says she got tested on for Covid and the results were negative on Monday. Patient also uses an inhaler. She heard herself wheezing last night but is not wheezing at this time. She told the triage nurse that pain in her stomach was 10/10. She feels it epigastric and burning like GERD. She denies any chest pain at this time. Patient still produces urine. She is taking Lasix. She denies any dysuria. She says her blood sugars have been low. No sore throat, chest pain, palpitations, abdominal pain, joint pain, rashes, depression, anxiety, visual changes, dizziness, headache. 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 COVID-19 Screening: Negative COVID-19 COVID-19 Testing Source: nasal Patient History Past Medical History: see triage record Social History: Denies: smoking, alcohol use, drug use Social History Narrative from home Now: No Reviewed Nursing Documentation: PMH: Agreed; PSxH: Agreed Nursing Documentation-PMH Hx Hypertension: Yes Hx Asthma: Yes Hx COPD: Yes - bronchitis Hx Diabetes: Yes Hx Cancer: No Hx Gastrointestinal Problems: No - kidney failure Hx Dialysis: Yes - t//mon Hx Neurological Problems: No - SEIZURE, ANXIETY Review of Systems All Other Systems: negative except mentioned in HPI Physical Exam Vital Signs Date Time Temp Pulse Resp B/P (MAP) Pulse Ox O2 Delivery O2 Flow Rate FiO2 11/15/20 09:41 98.4 96 24 187/100 (129) 100 Room Air Sp02 EP Interpretation: reviewed, normal General Appearance: no apparent distress, GCS 15, non-toxic, mild distress - Extremely dyspneic with minimal exertion Head: normocephalic Eyes: bilateral eye normal inspection, bilateral eye PERRL, bilateral eye EOMI ENT: other - Wearing a mask Neck: supple Respiratory: lungs clear, normal breath sounds, no wheezing, respiratory distress - With minimal exertion Cardiovascular #1: regular rate, rhythm, no edema Cardiovascular #2: 2+ radial (R), 2+ radial (L) - Fistula with thrill Gastrointestinal: normal inspection, normal bowel sounds, no mass, non- distended, no guarding, no rebound, tenderness - Reported epigastric, overweight Genitourinary: no CVA tenderness Musculoskeletal: back normal, normal range of motion, no calf tenderness, gait/station normal Neurologic: alert, oriented x3, grossly normal Psychiatric: mood/affect normal Skin: no rash, warm/dry Medical Decision Making Diagnostic Impression: Primary Impression: Dyspnea Qualified Codes: R06.00 - Dyspnea, unspecified Additional Impressions: End stage renal disease on dialysis Nausea, vomiting, and diarrhea Abdominal pain Qualified Codes: R10.13 - Epigastric pain Left against medical advice ER Course Patient presents with dyspnea on exertion, nausea vomiting and diarrhea with history of diabetes and renal failure. Differential includes gastroenteritis, Covid, acute myocardial infarction, other lung infection, exacerbation of asthma amongst others. Patient evaluated EKG, chest x-ray and labs. Oxygen saturation is adequate at this time therefore pulmonary embolus is less likely. 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 No bronchospasm at this time. Consideration for treatment with Robitussin with codeine for cough. EKG no acute injury. Chest x-ray with pulmonary hypertension and reversal of flow. Normal CBC. CMP with chronic renal failure. (Blood glucose 89.) Elevated BNP. Minimally elevated D-dimer. Patient used her own inhaler here. Discussed the need for dialysis and hospitalization. Patient is in agreement. Patient faced with transfer to another hospital. She refuses to go. Attempt to find another hospital. Second option was too far for the patient. Discussed the risk of with leaving at this time and the need for continued treatment including dialysis for fluid in her lungs. Discussed these things with the daughter also. Patient still adamant about not being transferred and leaving AGAINST MEDICAL ADVICE to go home. Advised the patient that if she changes her mind to return. Patient was somewhat improved exercise capacity but still has dyspnea on exertion when leaving the hospital. She does report her breathing is somewhat better. In addition she states that the Pepcid and Zofran have helped her epigastric pain. Laboratory Tests Test 11/15/20 09:45 11/15/20 09:46 11/15/20 09:51 POC Whole Blood Glucose 94 MG/DL (74-106) Sodium Level 140 MMOL/L (136-145) Potassium Level 4.4 MMOL/L (3.5-5.1) Chloride Level 99 MMOL/L (98-107) Carbon Dioxide Level 33 MMOL/L (21-32) H Anion Gap 8 mmol/L (5-15) Blood Urea Nitrogen 21 mg/dL (7-18) H Creatinine 5.7 MG/DL (0.55-1.30) H Estimated Glomerular Filtration Rate 9.2 mL/min (>60) Glucose Level 89 MG/DL (74-106) Calcium Level 8.7 MG/DL (8.5-10.1) Magnesium Level 1.8 MG/DL (1.8-2.4) Ferritin 1094 NG/ML (8-388) H Total Bilirubin 0.4 MG/DL (0.2-1.0) Aspartate Amino Transferase (AST) 17 U/L (15-37) Alanine Aminotransferase (ALT) 20 U/L (12-78) Alkaline Phosphatase 457 U/L (46-116) H Lactate Dehydrogenase 195 U/L (81-234) Total Creatine Kinase 94 U/L (26-308) Creatine Kinase MB 1.0 NG/ML (0.0-3.6) Creatine Kinase MB Relative Index 1.0 Troponin I 0.000 ng/mL (0.000-0.056) C-Reactive Protein, Quantitative 3.8 mg/dL (0.00-0.90) H Pro-B-Type Natriuretic Peptide 1062 pg/mL (0-125) H Total Protein 9.0 G/DL (6.4-8.2) H Albumin 3.7 G/DL (3.4-5.0) Globulin 5.3 g/dL Albumin/Globulin Ratio 0.7 (1.0-2.7) L Lipase 358 U/L (73-393) White Blood Count 10.1 K/UL (4.8-10.8) Red Blood Count 4.25 M/UL (4.20-5.40) Hemoglobin 12.3 G/DL (12.0-16.0) Hematocrit 40.8 % (37.0-47.0) Mean Corpuscular Volume 96 FL (80-99) Mean Corpuscular Hemoglobin 28.9 PG (27.0-31.0) Mean Corpuscular Hemoglobin Concent 30.2 G/DL (32.0-36.0) L Red Cell Distribution Width 16.0 % (11.6-14.8) H Platelet Count 291 K/UL (150-450) Mean Platelet Volume 7.4 FL (6.5-10.1) Neutrophils (%) (Auto) 63.5 % (45.0-75.0) Lymphocytes (%) (Auto) 26.9 % (20.0-45.0) Monocytes (%) (Auto) 6.7 % (1.0-10.0) Eosinophils (%) (Auto) 1.9 % (0.0-3.0) Basophils (%) (Auto) 1.0 % (0.0-2.0) Prothrombin Time 11.4 SEC (9.30-11.50) Prothrombin Time INR 1.0 (0.9-1.1) Activated Partial Thromboplast Time 29 SEC (23-33) D-Dimer 0.92 mg/L FEU (0.00-0.49) H Lactic Acid Level 1.20 mmol/L (0.4-2.0) EKG Diagnostic Results Troponin ordered: Yes Rate: normal Rhythm: NSR ST Segments: no acute changes - Nonspecific ST-T wave changes Rhythm Strip Diag. Results EP Interpretation: yes Rhythm: NSR, no PVC's, no ectopy Chest X-Ray Diagnostic Results Chest X-Ray Diagnostic Results : Chest X-Ray Ordered: Yes # of Views/Limited/Complete: 1 View Indication: Shortness of Breath EP Interpretation: Yes Interpretation: no effusion, no pneumothorax, other - Pulmonary hypertension and reversal of flow Impression: Other Electronically Signed by: Electronically signed by Darrius Navarro MD Last Vital Signs Date Time Temp Pulse Resp B/P (MAP) Pulse Ox O2 Delivery O2 Flow Rate FiO2 11/15/20 10:01 89 25 Room Air 99 11/15/20 10:01 98.4 112/94 99 Status: improved Disposition: AGAINST MEDICAL ADVICE Condition: Serious Darrius Navarro MD Nov 15, 2020 09:56
[2020-11-15 10:01] VITALS: BP 112/94
--- NOTE | 2020-11-15 10:18 | NUR ---
Patient reported to ED due to abdominal pain, nausea and vomiting since last . Abdominal pain is in the right and left flank. Nausea has been on and off. Emesis is mostly phlegm and undigested food per patient. AAOX4. Does not urinate often due to being a dialysis patient. She is dialysed Tue. , Mon but states that tomorrow she is suppose to have an extra day due to having too much fluid. Fistula placement-LUE. Positive ascultation of bruit and positive palpation of thrill in LUE. She needs assistance to stand from sitting and transfer. Peripheral IV 20G placed in RFA. Tolerated well. Patent. Patient needed urine and reported that she held it because (we) nurses may need it. She was taken to the bathroom but missed the cup while urinating. Will wait for her to obtain more urine.
--- NOTE | 2020-11-15 10:21 | Diagnostic Imaging Report ---
EXAM: XR Chest, 1 View CLINICAL HISTORY: DYSPNEA TECHNIQUE: Frontal view of the chest. COMPARISON: Chest radiograph on 08/27/2020 FINDINGS: Hardware: None. Lungs/pleura: Interstitial opacities throughout the lungs. No pleural effusion or pneumothorax. Heart/mediastinum: Normal. No cardiomegaly. Soft tissues: Unremarkable. Bones: No acute fracture. Degenerative changes of the acromioclavicular joints. Upper abdomen: Normal. Other: Vascular stent along the medial right upper chest. Vascular stents in the axillary regions. IMPRESSION: Interstitial opacities throughout the lungs may represent pulmonary vasculature congestion versus infectious/inflammatory process.
[2020-11-15 10:58] LABS: CALCIUM 8.7 MG/DL (8.5-10.1); CREATININE 5.7 MG/DL (0.55-1.30); POTASSIUM 4.4 MMOL/L (3.5-5.1)
--- NOTE | 2020-11-15 11:00 | NUR ---
Patient scheduled for transfer to another facility. Awaiting CMP before transfer.
[2020-11-15 11:06] LABS: EOSINOPHILS % (AUTO) 1.9 % (0.0-3.0); HEMATOCRIT 40.8 % (37.0-47.0); HEMOGLOBIN 12.3 G/DL (12.0-16.0); LYMPHOCYTES % (AUTO) 26.9 % (20.0-45.0); MEAN CORPUSCULAR VOLUME 96 FL (80-99); MONOCYTES % (AUTO) 6.7 % (1.0-10.0); NEUTROPHILS % (AUTO) 63.5 % (45.0-75.0); PLATELET COUNT 291 K/UL (150-450); RED BLOOD COUNT 4.25 M/UL (4.20-5.40); WHITE BLOOD COUNT 10.1 K/UL (4.8-10.8)
[2020-11-15 11:14] LABS: ALBUMIN 3.7 G/DL (3.4-5.0); ALBUMIN/GLOBULIN RATIO 0.7 (1.0-2.7); BILIRUBIN,TOTAL 0.4 MG/DL (0.2-1.0)
--- NOTE | 2020-11-15 12:49 | NUR ---
Patient is refusing to be transferred to another hospital that would be able continue her care as per her insurance. She is deciding to leave AMA at the risk of decline in current symptoms and possible yet still decides to leave.
== END 2020-11-15 17:21 | disposition left against medical advice (07) ==
LOC: EMR 09:49
DX: R06.00 Dyspnea, unspecified (principal); I12.0 Hypertensive chronic kidney disease with stage 5 chronic kidney disease or end stage renal disease; E11.22 Type 2 diabetes mellitus with diabetic chronic kidney disease; N18.6 End stage renal disease; R11.2 Nausea with vomiting, unspecified; R19.7 Diarrhea, unspecified; R10.13 Epigastric pain
CPT/HCPCS: 71045; 80053; 82550; 82553; 82728; 82962; 83605; 83615; 83690; 83735; 83880; 84484; 85025; 85379; 85610; 85730; 86140; 87040; 93005; 96374; 96375; J2405; S0028; Z7502; 99284